=== PATIENT | female | born 1945 | race Caucasian/White ===

== ENCOUNTER 2024-03-19 09:52 | Emergency (ER) | payer OTHER, SELFPAY ==
[2024-03-19 09:54] VITALS: BP 158/83
[2024-03-19 10:00] VITALS: BP 175/92
[2024-03-19 10:26] VITALS: BMI 23.5
--- NOTE | 2024-03-19 10:32 | ED.GENMED ---
History of Present Illness
General
Chief Complaint: Blood Pressure Problem
Time Seen by Provider: 03/19/24 09:59
History of Present Illness
History of Present Illness:
78-year-old female presents to the emergency department with her for evaluation of abnormal blood pressure reading as of this morning. The reports that her blood pressure has been checked every day for the past several days that she
was started on Lasix for lower extremity edema 3 days ago she was requesting Lasix yesterday. Patient denies any chest pain or shortness of breath at this time. They did not weigh the patient today. She is compliant with her blood pressure
medicine
Past History
Past History
ED Past Medical History: Arrthythmia (AF), HTN, Hypothyroidism and Other (hypertrophic CM)
ED Past Surgical History: Appendectomy, Gynecological (Total Hysterectomy), Tonsilectomy and Other (Teratoma removed)
Patient has exhibited threatening behavior?: No
PSI?: No
Social History
Tobacco: Non-smoker
Alcohol: None
Personal:
Living: with family
Employment: Not employed
Family History
Family History: Hypertension
Review of Systems
Review of Systems
Allergies reviewed?: Yes
All Other Systems: ROS reviewed and negative except as documented in HPI and ROS
Phy Exam
Physical Exam
Physical Exam:
GEN: Well appearing, NAD, WDWN
Eyes: PERRLA, EOMs intact, no scleral icterus
HENT: NCAT, oral mucosa moist, no JVD, no cervical adenopathy.
Lungs: CTAB, no wheezes, rales, rhonchi, normal chest wall excursion
Cardiac: RRR, no M/R/G. Radial pulses 2+ bilat
Abdomen: S, NT, ND, NABS, no masses or hepatosplenomegaly
Neuro: AO x 3
MSK: No gross deformity or ecchymosis. 2+ pitting edema bilateral lower extremities, reportedly improved per
Skin: No rashes, petechiae. Normal color, no pallor or jaundice.
Psych: Calm, cooperative, proper hygiene
Course
Orders/Labs/Results
Orders:
Orders
03/19/24 10:15
CR Chest - 2 Views Urgent
Comment:
Reason For Exam: edema, weakness
03/19/24 10:38
Basic Metabolic Panel Urgent
Complete Blood Count/No Diff Urgent
NT-proBNP Urgent
03/19/24 11:16
Potassium Chloride [KCl] 20 meq PO NOW STA
Abnormal Lab Results
03/19/24
10:38
WBC 4.6 L 10^3/uL
(4.8-10.8)
RBC 4.08 L 10^6/uL
(4.20-5.40)
Hgb 11.1 L g/dL
(12.0-16.0)
Hct 33.9 L %
(37.0-47.0)
MCHC 32.7 L g/dL
(33.0-37.0)
RDW 14.7 H %
(11.5-14.5)
Potassium 3.3 L mmol/L
(3.5-5.1)
03/19/24 10:38
03/19/24 10:38
Vital Signs
Initial and Last Documented VS:
Initial Vital Signs
Temp Pulse Resp BP Pulse Ox
98.5 F 72 18 158/83 98
03/19/24 09:54 03/19/24 09:54 03/19/24 09:54 03/19/24 09:54 03/19/24 09:54
Last Documented Vital Signs
Temp Pulse Resp BP Pulse Ox
98.5 F 68 18 155/68 98
03/19/24 09:54 03/19/24 11:47 03/19/24 11:47 03/19/24 11:47 03/19/24 11:47
MDM/Problems Addressed
MDM/Problems Addressed:
Patient's workup reveals new cardiomegaly with trace bilateral pleural effusions. However she has no normal work of breathing and no complaints of shortness of breath thus I do not suspect any component of acute CHF. She is mildly hypokalemic on
the basis of recent diuresis suspect this will improve. Uncertain etiology to her acute hypotension however would not recommend any medication adjustments at this time rather will defer to outpatient cardiology follow-up
*Critical Care Note
Total Time (30-74mins, 75-104mins- exclusive of procedures): Not Applicable
ED Attending Note
-
Portions of this chart may have been created with voice recognition software.� Occasional wrong word or��sound alike� substitutions may have occurred due to the inherent limitations of voice recognition software.
Discharge Plan
Departure
Patient Disposition: Home (Routine Discharge)
Date of Disposition: 03/19/24
Time of Disposition: 11:17
Patient with high blood pressure during this ER visit?: No
Discharge Problem:
Elevated blood pressure reading, Acute hypokalemia
Instructions: BLOOD PRESSURE
Prescriptions:
No Action
levothyroxine 100 MCG tablet
100 mcg PO SUMOTUWETHFR@0500
multivitamin 1 EACH tablet
1 tab PO DAILY
ascorbic acid (vitamin C) [Vitamin C] 1,000 MG tablet
1,000 mg PO DAILY
doxazosin 1 MG tablet
1 mg PO DAILY@1999
diltiazem HCl 180 MG capsule,extended release 24hr
180 mg PO BID
Xarelto 20 MG tablet
20 mg PO QPM
cholecalciferol (vitamin D3) 2,000 UNIT tablet
1,000 unit PO DAILY
liothyronine 5 mcg Tablet
5 mcg PO DAILY@0500
amiodarone [Pacerone] 200 mg Tablet
200 mg PO DAILY Qty: 90 3RF
Referrals:
Aylin Meraz NP [Family Provider] -
Lindsey Barillas, [Active] -
Activity Restrictions/Additional Instructions:
Follow up with your test consultant office next week to discuss your blood pressure. Continue once daily blood pressure checks; in many cases, the blood pressure will return to normal within a few days
Your heart border appeared enlarged on your chest x ray. As a result, you may require a repeat echocardiogram. This can also be discussed with your test consultant
Your potassium levels are mildly low likely from your recent use of Lasix. We have given you a dose in the ER, but this likely will also return to normal as the lasix clears from your system
Return if you develop shortness of breath or chest pain
Interventions
Interventions:
*Risk Screen - Suicide Last Done: 03/19/24 09:54
*General Assessment Last Done: 03/19/24 09:54
*Neglect/Abuse Screening Last Done: 03/19/24 09:54
ED- Fall Risk Assessment Last Done: 03/19/24 10:26
*ED COVID-19 Vaccine History Last Done: 03/19/24 09:54
*Nursing Disposition Last Done: 03/19/24 11:47
ED- Cardiac Assessment Last Done: 03/19/24 10:26
ED- Neurological Assessment Last Done: 03/19/24 10:26
ED- Pulmonary Assessment Last Done: 03/19/24 10:26
Discharge Date and Time
Discharge Date/Time: 03/19/24 11:45
Print Language: MAURITIAN
[2024-03-19 11:03] LABS: Blood Urea Nitrogen 14 mg/dl (7-17); Calcium 8.7 mg/dl (8.4-10.2); Carbon Dioxide 29 mmol/L (22-30); Chloride 106 mmol/L (98-107); Estimated Creatinine Clearance 56 ml/min; Glucose 97 mg/dl (70-99); Potassium 3.3 mmol/L (3.5-5.1); Sodium 140 mmol/L (135-145); eGFR > 60.00
[2024-03-19 11:04] LABS: Hematocrit 33.9 % (37.0-47.0); Hemoglobin 11.1 g/dL (12.0-16.0); Mean Corp Hgb Conc. 32.7 g/dL (33.0-37.0); Mean Corpuscular Hgb 27.2 pg (27.0-31.0); Mean Corpuscular Volume 83.1 fL (81.0-99.0); Mean Platelet Volume 10.4 fL (7.4-10.4); Platelet Count 221 10^3/uL (130-400); Red Blood Cell Count 4.08 10^6/uL (4.20-5.40); Red Cell Dist. Width 14.7 % (11.5-14.5); White Blood Cell Count 4.6 10^3/uL (4.8-10.8)
[2024-03-19 11:05] VITALS: BP 162/69
[2024-03-19 11:09] LABS: NT-proBNP 730 pg/ml
[2024-03-19 11:25] VITALS: BP 155/68
[2024-03-19] MEDS: KCL 20 MEQ PO (11:25)
--- NOTE | 2024-03-19 11:45 | EDRN ---
Reviewed discharge instructions with patient's . Verbalized understanding. Taken to lobby in wheelchair.
[2024-03-19 11:47] VITALS: BP 155/68
== END 2024-03-19 11:45 | disposition home or self-care (01) ==
LOC: EMR 09:52
PROVIDERS: Physician Assistant; EMERGENCY PHYSICIAN Emergency Medicine; FAMILY PHYSICIAN Nurse Practitioner Family
DX: E87.6 Hypokalemia (principal); I10 Essential (primary) hypertension; R60.0 Localized edema
CPT/HCPCS: 99284; 71046; 80048; 83880; 85027

== ENCOUNTER → 2024-04-05 13:43 | Outpatient (REF) | payer OTHER, SELFPAY | LOC: HWRAD 13:43 | PROVIDERS: ATTENDING PHYSICIAN Nurse Practitioner Family | DX: N32.9 Bladder disorder, unspecified (principal) | CPT/HCPCS: 76857 ==

== ENCOUNTER → 2024-04-11 08:44 | Outpatient (REF) | payer OTHER, SELFPAY | LOC: RAD 08:44 | PROVIDERS: ATTENDING PHYSICIAN Nurse Practitioner Family | DX: R10.13 Epigastric pain (principal); K21.00 Gastro-esophageal reflux disease with esophagitis, without bleeding | CPT/HCPCS: 74246 ==

== ENCOUNTER → 2024-05-30 12:48 | Outpatient (REF) | payer OTHER, SELFPAY | LOC: HWRCS 12:48 | PROVIDERS: ATTENDING PHYSICIAN Internal Medicine Cardiovascular Disease; FAMILY PHYSICIAN Family Medicine | DX: I10 Essential (primary) hypertension (principal) | CPT/HCPCS: 93306 ==

== ENCOUNTER → 2024-07-21 08:10 | Outpatient (REF) | payer OTHER, SELFPAY | LOC: PAVMRI 08:10 | PROVIDERS: ATTENDING PHYSICIAN Surgery; FAMILY PHYSICIAN Nurse Practitioner Family | DX: N28.9 Disorder of kidney and ureter, unspecified (principal) | CPT/HCPCS: 74183; A9575 ==

== ENCOUNTER 2024-07-24 14:07 | Emergency (ER) | payer OTHER, SELFPAY ==
[2024-07-24] VITALS (12 sets, daily range): BP systolic 134–154; BP diastolic 68–88; PULSE 67–78; BMI 17.8
[2024-07-24 14:50] LABS: Hematocrit 34.8 % (37.0-47.0); Hemoglobin 10.8 g/dL (12.0-16.0); Mean Corpuscular Volume 83.7 fL (81.0-99.0); Mean Platelet Volume 10.4 fL (7.4-10.4); Platelet Count 197 10^3/uL (130-400); Red Blood Cell Count 4.16 10^6/uL (4.20-5.40); Red Cell Dist. Width 17.3 % (11.5-14.5)
--- NOTE | 2024-07-24 14:51 | ED.GENMED ---
History of Present Illness
General
Chief Complaint: Fainting/Passed Out
Source: patient and spouse
Exam Limitations: none
Time Seen by Provider: 07/24/24 14:26
Nursing documentation reviewed up to this point in time: agreed with
History of Present Illness
History of Present Illness:
The patient is an 78-year-old female woth a past medical history of atrial fibrillation who was brought in by her after she had an episode of passing out and collapsing at home just prior to arrival. Her reports that they were
preparing lunch in the kitchen and the patient said that she needed to sit down. He reports that he followed her to the dining room and she seemed to be standing in the dining room nearly unresponsive. He encouraged her to sit down in a chair,
which she did. Her reports that she seemed to be unresponsive for less than 5 minutes and passed out while sitting in the dining room chair. Fortunately she did not fall. He did not witness any seizure-like activity such as shaking of the
arms and legs, biting her tongue or urinating in her pants. he reports that she has had episodes of passing out in the past. The family checked her Apple Watch and her heart rate was recorded to be in the upper 50s during this episode of passing
out today.. The patient denies any recent chest pain or shortness of breath. Patient denies any pain anywhere and says she feels well. Her reports patient had been previously well.
Past History
Past History
ED Past Medical History: Arrthythmia (AF), HTN, Hypothyroidism and Other (hypertrophic CM)
ED Past Surgical History: Appendectomy, Gynecological (Total Hysterectomy), Tonsilectomy and Other (Teratoma removed)
Patient has exhibited threatening behavior?: No
PSI?: No
Social History
Tobacco: Non-smoker
Alcohol: None
Personal:
Living: with family
Employment: Not employed
Family History
Family History: Hypertension
Review of Systems
Review of Systems
Allergies reviewed?: Yes
Other source history: family
All Other Systems: ROS reviewed and negative except as documented in HPI and ROS
Constitutional: Reports no symptoms
EENT: Reports no symptoms
Respiratory: Reports no symptoms
Cardiac: Reports syncope
ABD/GI: Reports no symptoms
: Reports no symptoms
Musculoskeletal: Reports no symptoms
Skin: Reports no symptoms
Neurological: Reports no symptoms
Endocrine: Reports no symptoms
Hematologic/Lymphatic: Reports no symptoms
Psychiatric: Reports no symptoms
Phy Exam
Physical Exam
Physical Exam:
Physical Exam
General: no apparent distress, not acutely ill. Well and comfortable appearing
Neck: supple. no meningeal signs. normal psoterior pharynx
Heart: s1/s2 regular rate and rhythm, no murmur. equal radial pulses.
Lungs: no acute respiratory distress. clear bilaterally
Abdomen: normal bowel sounds. not tender. no CVAT
Neuro: alert and oriented. no focal neurological deficits
Skin: no rash
Psychiatric: well kept. interactive and cooperative
Extremities: no edema. no calf tenderness. negative homans. good distal pulses
Course
Orders/Labs/Results
Orders:
Orders
07/24/24 14:34
EKG [Electrocardiogram (*1)] Urgent
Reason for Study: Syncope
EKG- Treatment ONCE
07/24/24 14:39
Complete Blood Count/No Diff Urgent
Comprehensive Metabolic Panel Urgent
07/24/24 15:19
Orthostatic VS- Treatment ONCE
07/24/24 16:00
Troponin I Urgent
07/24/24 16:30
0.9% Sodium Chloride 1000 ml [Nss] 1,000 ml IV BOLUS
07/24/24 17:35
Troponin I Urgent
Abnormal Lab Results
07/24/24
14:39
RBC 4.16 L 10^6/uL
(4.20-5.40)
Hgb 10.8 L g/dL
(12.0-16.0)
Hct 34.8 L %
(37.0-47.0)
MCH 26.0 L pg
(27.0-31.0)
MCHC 31.0 L g/dL
(33.0-37.0)
RDW 17.3 H %
(11.5-14.5)
Carbon Dioxide 32 H mmol/L
(22-30)
Glucose 131 H mg/dl
(70-99)
AST 41 H U/L
(14-36)
Total Protein 6.1 L g/dl
(6.3-8.2)
Albumin 3.4 L g/dl
(3.5-5.0)
07/24/24 14:39
07/24/24 14:39
Vital Signs
Initial and Last Documented VS:
Initial Vital Signs
Pulse Pulse Ox
58 98
07/24/24 14:13 07/24/24 14:13
Last Documented Vital Signs
Temp Pulse Resp BP Pulse Ox
98.7 F 67 18 143/86 100
07/24/24 14:16 07/24/24 18:25 07/24/24 14:16 07/24/24 18:55 07/24/24 16:32
MDM/Problems Addressed
Differential Diagnosis Includes:
Acute cardiac arrhythmia such as rapid A-fib, orthostatic hypotension, dehydration
MDM/Problems Addressed:
Patient presents after an episode of acute syncope
Chronic conditions affecting care: Arrhythmia
Acute Exacerbation and/or Progression of Chronic Illness: Arrhythmia
*Pulse Oximetry
Patient hypoxic: no
*EKG
Interpreted by ED Provider?: Yes
Interpretation: abnormal
Comparison EKG: no changes
Rate: normal
Rhythm: sinus
[place]: normal axis
Interval: normal interval
QRS Pattern: right bundle branch block
Ischemia: non-specific ST changes
*Transit Survey Worker Interpretation
Rate: normal
Interpretation: normal
Rhythm: sinus
*Critical Care Note
Total Time (30-74mins, 75-104mins- exclusive of procedures): Not Applicable
Data Reviewed
Review of Other/Old Records Reveals: Testing (Cardiac echo done that shows normal EF from May 2024) and Discharge Summary (Discharge summary reviewed from July 2023 when patient was admitted for syncope and collapse related to rapid A-fib)
Source: patient and spouse
Update Note
Update Note:
Patient resting comfortably for hours without any chest pain or shortness of breath. I suspect patient had an orthostatic event. Patient given fluids and encouraged to drink fluids and good protein meal. Patient told to return with any dizziness,
lightheadedness, chest pain or shortness of breath
ED Attending Note
-
Portions of this chart may have been created with voice recognition software.� Occasional wrong word or��sound alike� substitutions may have occurred due to the inherent limitations of voice recognition software.
Discharge Plan
Departure
Patient Disposition: Home (Routine Discharge)
Date of Disposition: 07/24/24
Time of Disposition: 18:14
Patient with high blood pressure during this ER visit?: Yes
Condition: Good
Covid-19: Not Applicable
Discharge Problem:
Syncope and collapse, Orthostatic dizziness
Instructions: Orthostatic hypotension, Syncope (Fainting) (DC)
Prescriptions:
No Action
levothyroxine 100 MCG tablet
100 mcg PO SUMOTUWETHFR@0500
multivitamin 1 EACH tablet
1 tab PO DAILY
ascorbic acid (vitamin C) [Vitamin C] 1,000 MG tablet
1,000 mg PO DAILY
doxazosin 1 MG tablet
1 mg PO DAILY@2000
diltiazem HCl 180 MG capsule,extended release 24hr
180 mg PO BID
Xarelto 20 MG tablet
20 mg PO QPM
cholecalciferol (vitamin D3) 2,000 UNIT tablet
1,000 unit PO DAILY
liothyronine 5 mcg Tablet
5 mcg PO DAILY@0500
amiodarone [Pacerone] 200 mg Tablet
200 mg PO DAILY Qty: 90 3RF
Referrals:
Aylin Meraz NP [Family Provider] -
Activity Restrictions/Additional Instructions:
Please drink lots of fluids to keep yourself well-hydrated. If you feel lightheaded, please sit down immediately and elevate your legs.
Interventions
Interventions:
*Risk Screen - Suicide Last Done: 07/24/24 14:16
*General Assessment Last Done: 07/24/24 14:16
*Neglect/Abuse Screening Last Done: 07/24/24 14:16
ED- Fall Risk Assessment Last Done: 07/24/24 17:19
*ED COVID-19 Vaccine History Last Done: 07/24/24 19:17
*Nursing Disposition Last Done: 07/24/24 19:17
ED- Cardiac Assessment Last Done: 07/24/24 17:19
ED- Neurological Assessment Last Done: 07/24/24 17:19
Discharge Date and Time
Discharge Date/Time: 07/24/24 18:50
Print Language: BENGALI
[2024-07-24 15:06] LABS: ALT (SGPT) 25 U/L (0-35); AST (SGOT) 41 U/L (14-36); Albumin 3.4 g/dl (3.5-5.0); Alkaline Phosphatase 111 U/L (38-126); Blood Urea Nitrogen 17 mg/dl (7-17); Calcium 8.7 mg/dl (8.4-10.2); Carbon Dioxide 32 mmol/L (22-30); Chloride 104 mmol/L (98-107); Glucose 131 mg/dl (70-99); Potassium 3.8 mmol/L (3.5-5.1); Sodium 140 mmol/L (135-145); Total Bilirubin 0.4 mg/dl (0.2-1.3); Total Protein 6.1 g/dl (6.3-8.2); eGFR > 60.00
[2024-07-24 16:43] LABS: Troponin I 0.013 ng/ml
[2024-07-24] MEDS: NSS 1000 IV (16:48)
[2024-07-24 18:13] LABS: Troponin I < 0.012 ng/ml
== END 2024-07-24 18:50 | disposition home or self-care (01) ==
LOC: EMR 14:07
PROVIDERS: EMERGENCY PHYSICIAN Emergency Medicine; FAMILY PHYSICIAN Nurse Practitioner Family
DX: R55 Syncope and collapse (principal); R42 Dizziness and giddiness; I48.91 Unspecified atrial fibrillation; I10 Essential (primary) hypertension; E03.9 Hypothyroidism, unspecified; I42.2 Other hypertrophic cardiomyopathy; Z82.49 Family history of ischemic heart disease and other diseases of the circulatory system; Z90.49 Acquired absence of other specified parts of digestive tract; Z90.710 Acquired absence of both cervix and uterus
CPT/HCPCS: 99283; 96360; 80053; 84484; 85027; 93005

== ENCOUNTER → 2024-08-27 11:10 | Outpatient (REF) | payer OTHER, SELFPAY ==
[2024-08-27 11:52] LABS: % Basophils 0.6 % (0-2); % Eosinophils 0.6 % (0-6); % Immature Granulocytes 0.6 % (0-0.5); % Lymphocytes 5.4 % (20.5-51.1); % Monocytes 6.3 % (1.7-9.3); % Neutrophils 86.5 % (42.2-75.2); Absolute Basophils 0.1 10^3/uL (0-0.2); Absolute Eosinophils 0.1 10^3/uL (0-0.7); Absolute Immature Granulocytes 0.1 10^3/uL (0-0.05); Absolute Lymphocytes 0.6 10^3/uL (1.2-3.4); Absolute Monocytes 0.7 10^3/uL (0.1-0.6); Absolute Neutrophils 9.4 10^3/uL (1.4-6.5); Hematocrit 38.5 % (37.0-47.0); Mean Corp Hgb Conc. 31.2 g/dL (33.0-37.0); Mean Corpuscular Hgb 26.7 pg (27.0-31.0); Mean Corpuscular Volume 85.7 fL (81.0-99.0); Mean Platelet Volume 11.8 fL (7.4-10.4); Nucleated Red Blood Cells % 0 %; Platelet Count 231 10^3/uL (130-400); Red Blood Cell Count 4.49 10^6/uL (4.20-5.40); Red Cell Dist. Width 17.2 % (11.5-14.5); White Blood Cell Count 10.8 10^3/uL (4.8-10.8)
[2024-08-27 12:01] LABS: Blood Urea Nitrogen 26 mg/dl (7-17); Calcium 8.6 mg/dl (8.4-10.2); Carbon Dioxide 31 mmol/L (22-30); Chloride 104 mmol/L (98-107); Glucose 104 mg/dl (70-99); Potassium 4.1 mmol/L (3.5-5.1); Sodium 141 mmol/L (135-145); eGFR > 60.00
[2024-08-27 12:09] LABS: Urine Albumin 1+ (Neg - Trace); Urine Bilirubin Negative (Negative); Urine Character Very Cloudy (Clear); Urine Color Amber; Urine Glucose Negative (Negative); Urine Ketone 1+ (Negative); Urine Leukocyte 2+ (Negative); Urine Nitrite Positive (Negative); Urine Occult Blood 4+ (Negative); Urine Urobilinogen Negative (Neg - 1+)
[2024-08-27 12:23] LABS: Urine Squamous Cell 16-20 /LPF (Few)
[2024-08-27 12:24] LABS: Urine Bacteria Moderate (Negative); Urine Red Blood Cell 16-20 /HPF (0-2); Urine White Cell 80-90 /HPF (0-5)
== END ==
LOC: OLABP 11:10
PROVIDERS: ATTENDING PHYSICIAN Family Medicine
DX: F03.90 Unspecified dementia, unspecified severity, without behavioral disturbance, psychotic disturbance, mood disturbance, and anxiety (principal); I48.0 Paroxysmal atrial fibrillation; I10 Essential (primary) hypertension
CPT/HCPCS: 36415; 80048; 81003; 81015; 85025; 87077; 87086; 87186

== ENCOUNTER → 2024-08-29 10:34 | Outpatient (REF) | payer OTHER, SELFPAY ==
[2024-08-29 11:06] LABS: Hematocrit 42.9 % (37.0-47.0); Hemoglobin 13.1 g/dL (12.0-16.0); Mean Corp Hgb Conc. 30.5 g/dL (33.0-37.0); Mean Corpuscular Hgb 26.4 pg (27.0-31.0); Mean Corpuscular Volume 86.3 fL (81.0-99.0); Mean Platelet Volume 11.3 fL (7.4-10.4); Platelet Count 277 10^3/uL (130-400); Red Blood Cell Count 4.97 10^6/uL (4.20-5.40); Red Cell Dist. Width 17.5 % (11.5-14.5); White Blood Cell Count 9.1 10^3/uL (4.8-10.8)
[2024-08-29 11:16] LABS: ALT (SGPT) 47 U/L (0-35); AST (SGOT) 59 U/L (14-36); Albumin 3.3 g/dl (3.5-5.0); Alkaline Phosphatase 156 U/L (38-126); Blood Urea Nitrogen 32 mg/dl (7-17); Calcium 8.5 mg/dl (8.4-10.2); Carbon Dioxide 34 mmol/L (22-30); Chloride 101 mmol/L (98-107); Glucose 95 mg/dl (70-99); Potassium 3.9 mmol/L (3.5-5.1); Sodium 141 mmol/L (135-145); Total Bilirubin 0.5 mg/dl (0.2-1.3); eGFR > 60.00
== END ==
LOC: OLABP 10:34
PROVIDERS: ATTENDING PHYSICIAN Family Medicine
DX: F03.90 Unspecified dementia, unspecified severity, without behavioral disturbance, psychotic disturbance, mood disturbance, and anxiety (principal); I48.0 Paroxysmal atrial fibrillation; I10 Essential (primary) hypertension; S12.190A Other displaced fracture of second cervical vertebra, initial encounter for closed fracture
CPT/HCPCS: 36415; 80053; 85027

== ENCOUNTER → 2024-10-03 16:02 | Outpatient (REF) | payer OTHER, SELFPAY ==
[2024-10-03 17:50] LABS: Urine Albumin 3+ (Neg - Trace); Urine Bilirubin 1+ (Negative); Urine Character Cloudy (Clear); Urine Color Brown; Urine Glucose Negative (Negative); Urine Ketone 1+ (Negative); Urine Leukocyte 3+ (Negative); Urine Nitrite Positive (Negative); Urine Occult Blood 4+ (Negative); Urine Specific Gravity 1.015 (<1.030); Urine Urobilinogen 1+ (Neg - 1+)
[2024-10-03 17:59] LABS: Urine Red Blood Cell >100 /HPF (0-2); Urine Squamous Cell 0-2 /LPF (Few)
[2024-10-03 18:00] LABS: Urine Bacteria Many (Negative); Urine White Cell 21-25 /HPF (0-5)
== END ==
LOC: OLABP 16:02
PROVIDERS: ATTENDING PHYSICIAN Family Medicine
DX: S12.190D Other displaced fracture of second cervical vertebra, subsequent encounter for fracture with routine healing (principal); F03.C0 Unspecified dementia, severe, without behavioral disturbance, psychotic disturbance, mood disturbance, and anxiety; I48.0 Paroxysmal atrial fibrillation; I10 Essential (primary) hypertension
CPT/HCPCS: 81003; 81015; 87086

== ENCOUNTER → 2024-10-10 12:16 | Outpatient (REF) | payer OTHER, SELFPAY | LOC: HWRAD 12:16 | PROVIDERS: ATTENDING PHYSICIAN Nurse Practitioner Family | DX: J18.9 Pneumonia, unspecified organism (principal) | CPT/HCPCS: 71046 ==

== ENCOUNTER 2024-10-11 15:41 | Inpatient (IN) | payer OTHER, SELFPAY ==
[2024-10-11 12:38] VITALS: BMI 20.3
[2024-10-11 12:39] VITALS: BP 93/51
[2024-10-11 13:10] LABS: % Basophils 0.1 % (0-2); % Immature Granulocytes 1.5 % (0-0.5); % Lymphocytes 4.4 % (20.5-51.1); % Monocytes 5.5 % (1.7-9.3); % Neutrophils 88.5 % (42.2-75.2); Absolute Immature Granulocytes 0.1 10^3/uL (0-0.05); Absolute Lymphocytes 0.4 10^3/uL (1.2-3.4); Absolute Monocytes 0.5 10^3/uL (0.1-0.6); Absolute Neutrophils 7.8 10^3/uL (1.4-6.5); Hematocrit 41.9 % (37.0-47.0); Hemoglobin 13.6 g/dL (12.0-16.0); Mean Corp Hgb Conc. 32.5 g/dL (33.0-37.0); Mean Corpuscular Hgb 27.4 pg (27.0-31.0); Mean Corpuscular Volume 84.5 fL (81.0-99.0); Mean Platelet Volume 10.2 fL (7.4-10.4); Nucleated Red Blood Cells % 0 %; Platelet Count 205 10^3/uL (130-400); Red Blood Cell Count 4.96 10^6/uL (4.20-5.40); Red Cell Dist. Width 19.1 % (11.5-14.5); White Blood Cell Count 8.8 10^3/uL (4.8-10.8)
[2024-10-11 13:33] LABS: ALT (SGPT) 96 U/L (0-35); AST (SGOT) 164 U/L (14-36); Albumin 2.9 g/dl (3.5-5.0); Alkaline Phosphatase 123 U/L (38-126); Blood Urea Nitrogen 58 mg/dl (7-17); Calcium 8.3 mg/dl (8.4-10.2); Carbon Dioxide 29 mmol/L (22-30); Chloride 96 mmol/L (98-107); Estimated Creatinine Clearance 10 ml/min; Glucose 159 mg/dl (70-99); Potassium 3.2 mmol/L (3.5-5.1); Sodium 133 mmol/L (135-145); Total Bilirubin 0.9 mg/dl (0.2-1.3); Total Protein 5.5 g/dl (6.3-8.2)
[2024-10-11 13:43] LABS: COVID-19 Antigen Positive (Negative)
[2024-10-11 13:50] VITALS: BP 106/51
[2024-10-11 13:59] LABS: Urine Albumin 2+ (Neg - Trace); Urine Bilirubin Negative (Negative); Urine Character Clear (Clear); Urine Color Yellow; Urine Glucose Negative (Negative); Urine Ketone 1+ (Negative); Urine Leukocyte 3+ (Negative); Urine Nitrite Negative (Negative); Urine Occult Blood 4+ (Negative); Urine Specific Gravity 1.015 (<1.030); Urine Urobilinogen Negative (Neg - 1+)
[2024-10-11 14:00] VITALS: BP 116/66
--- NOTE | 2024-10-11 14:07 | ED.GENMED ---
History of Present Illness
General
Chief Complaint: Failure to Thrive
Source: patient
Exam Limitations: none
Time Seen by Provider: 10/11/24 13:37
History of Present Illness
History of Present Illness:
78-year-old female presents from home with family who states the patient has declined over the past several weeks. She fell in August and suffered a C2 fracture. She was in [facility] for several days and [facility].
She was noticed to have decreased intake and lack of enjoyment in meals at the rehab center. She was discharged from rehab 1 week ago and since then they have noticed more of a decline. She has a history of cognitive impairment. They noticed she
is significantly off from her baseline and significantly weak. She also has been coughing for about a week. Her was coughing as well. Patient denies any pain but is a poor historian.
Past History
Past History
ED Past Medical History: Arrthythmia (AF), HTN, Hypothyroidism and Other (hypertrophic CM)
ED Past Surgical History: Appendectomy, Gynecological (Total Hysterectomy), Tonsilectomy and Other (Teratoma removed)
Patient has exhibited threatening behavior?: No
PSI?: No
Social History
Tobacco: Non-smoker
Alcohol: None
Personal:
Living: with family
Employment: Not employed
Family History
Family History: Hypertension
Phy Exam
Physical Exam
Physical Exam:
General: Cachectic appearing female no acute respiratory distress
HEENT: Normocephalic mucosa moist neck in cervical collar
Heart: Regular rate and rhythm holosystolic murmur noted
Lungs: Clear no wheeze
Abdomen is soft nontender nondistended no guarding or rebound
Extremities: No cyanosis or edema
Skin: Warm no rash
Course
Orders/Labs/Results
Orders:
Orders
10/11/24 12:33
Electrocardiogram (*1) Urgent
Reason for Study: Fatigue / Weakness
10/11/24 12:35
EKG- Treatment ONCE
10/11/24 12:55
Complete Blood Count/With Diff Urgent
Comprehensive Metabolic Panel Urgent
Magnesium Urgent
Comment: ADD ON
Urinalysis Reflex To Culture Urgent
Date Specimen was Collected: 10/11/24
Time Specimen was Collected: 12:43
Comment: Graves Catheter
Urine Microscopic Reflex Cult Urgent
Urine Culture Urgent
LEE Source: U
Specimen Description:
Date Specimen was Collected: 10/11/24
Time Specimen was Collected: 12:43
10/11/24 13:09
COVID-19 Antigen Urgent
Source: Nasal Swab
Influenza A+B Rapid Molecular Urgent
LEE Source: Nasal Swab
Specimen Description:
10/11/24 14:05
Add On- LAB Urgent
Tests Added?: magnesium
0.9% Sodium Chloride 1000 ml [Nss] 1,000 ml IV BOLUS
10/11/24 14:12
CR Chest Portable - 1 View Urgent
Comment:
Reason For Exam: cough
Reason Study Needs to be Portable: Patient Unstable
10/11/24 14:28
Potassium Chloride [KCl] 40 meq 0.9% Sodium Chloride 250 ml [Nss] 250 ml IV NOW
Abnormal Lab Results
10/11/24 10/11/24
12:55 13:09
MCHC 32.5 L g/dL
(33.0-37.0)
RDW 19.1 H %
(11.5-14.5)
Abs Immat Gran (auto) 0.1 H 10^3/uL
(0-0.05)
Absolute Neuts (auto) 7.8 H 10^3/uL
(1.4-6.5)
Absolute Lymphs (auto) 0.4 L 10^3/uL
(1.2-3.4)
Immature Gran % 1.5 H %
(0-0.5)
Neutrophils % 88.5 H %
(42.2-75.2)
Lymphocytes % 4.4 L %
(20.5-51.1)
Sodium 133 L mmol/L
(135-145)
Potassium 3.2 L mmol/L
(3.5-5.1)
Chloride 96 L mmol/L
(98-107)
BUN 58 H mg/dl
(7-17)
Creatinine 3.2 H mg/dL
(0.6-1.0)
Glucose 159 H mg/dl
(70-99)
Calcium 8.3 L mg/dl
(8.4-10.2)
AST 164 H U/L
(14-36)
ALT 96 H U/L
(0-35)
Total Protein 5.5 L g/dl
(6.3-8.2)
Albumin 2.9 L g/dl
(3.5-5.0)
Urine Ketones 1+ A
(Negative)
Ur Occult Blood Reflex 4+ A
(Negative)
Leukocyte Esterase Rfl 3+ A
(Negative)
Urine RBC >100 A /HPF
(0-2)
Urine WBC (Reflex) 40-50 A /HPF
(0-5)
Urine Bacteria (Reflex) Few A
(Negative)
Urine Albumin (Reflex) 2+ A
(Neg - Trace)
SARS-CoV-2 Antigen Positive A
(Negative)
10/11/24 12:55
10/11/24 12:55
Vital Signs
Initial and Last Documented VS:
Initial Vital Signs
Temp Pulse Resp BP Pulse Ox
98.3 F 72 16 93/51 94
10/11/24 12:39 10/11/24 12:39 10/11/24 12:39 10/11/24 12:39 10/11/24 12:39
Last Documented Vital Signs
Temp Pulse Resp BP Pulse Ox
98.3 F 63 16 116/66 93
10/11/24 12:39 10/11/24 14:30 10/11/24 14:30 10/11/24 14:00 10/11/24 14:30
MDM/Problems Addressed
Differential Diagnosis Includes:
weakness lack of intake and change from cognitive baseline. Differential could include electrolyte abnormality versus dehydration versus UTI. She also has been coughing. Will test for COVID and flu. Patient had an x-ray of her chest done at the
wellness center yesterday which I reviewed and demonstrates a small left pleural effusion and obscurity of the left hemidiaphragm left lower airspace disease may be present.
Will repeat portable chest x-ray today. COVID test was positive influenza test was negative.
Notable lab findings include potassium of 3.2 and creatinine was 3.2 as well. I suspect acute kidney injury likely prerenal.
*Critical Care Note
Total Time (30-74mins, 75-104mins- exclusive of procedures): Not Applicable
Update Note
Update Note:
Portable chest x-ray shows no obvious acute finding. Patient was treated for acute kidney injury and hypokalemia with IV potassium and normal saline. Will admit to hospitalist
ED Attending Note
-
Portions of this chart may have been created with voice recognition software.� Occasional wrong word or��sound alike� substitutions may have occurred due to the inherent limitations of voice recognition software.
Discharge Plan
Departure
Patient Disposition: Admit
Date of Disposition: 10/11/24
Time of Disposition: 15:03
Presentation/result/management discussed w/ accepting MD/DO: Hospitalist
Discharge Problem:
Acute dehydration, JOCELIN (acute kidney injury)
Prescriptions:
No Action
levothyroxine 100 MCG tablet
100 mcg PO SUMOTUWETHFR@0500
diltiazem HCl 180 MG capsule,extended release 24hr
180 mg PO DAILY
Xarelto 20 MG tablet
20 mg PO QPM
liothyronine 5 mcg Tablet
5 mcg PO DAILY@0500
amiodarone [Pacerone] 200 mg Tablet
200 mg PO DAILY Qty: 90 3RF
ciprofloxacin HCl [Cipro] 500 mg Tablet
500 mg PO BID
carbidopa-levodopa [Sinemet] 25-100 mg Tablet
1 tab PO DIRECTED
Rx Instructions:
starting 10/06/24- 0.5 tab bid for 3 days then 1 tab bid (10/09-10/12)for 3 days then 1 tab tid thereafter
polyethylene glycol 3350 [Miralax] 17 gram Powder In Packet
8.5 g PO DAILY
cyanocobalamin (vitamin B-12) 1,000 mcg Tablet, Sublingual
1,000 mcg SUBLINGUAL DAILY
coQ10 (ubiquinol) 100 mg Capsule
100 mg PO DAILY
Vitamin K2 Plus K1
1 cap PO DAILY
Referrals:
UNKNOWN,NO INTERVIEW [Family Provider] -
Interventions
Interventions:
*Risk Screen - Suicide Last Done: 10/11/24 12:38
*General Assessment Last Done: 10/11/24 12:43
*Neglect/Abuse Screening Last Done: 10/11/24 12:38
ED- Fall Risk Assessment Last Done: 10/11/24 12:46
*ED COVID-19 Vaccine History Last Done: 10/11/24 12:38
Discharge Date and Time
Print Language: TUVALUAN
[2024-10-11] MEDS: NSS 1000 IV ×2 (14:29→18:06)
[2024-10-11 14:47] LABS: Urine Amorphous Seen; Urine Squamous Cell >30 /LPF (Few); Urine Urothelial Cell >30 /LPF (FEW)
[2024-10-11 14:48] LABS: Urine Calcium Oxalate Crystals Present; Urine Red Blood Cell >100 /HPF (0-2)
[2024-10-11 14:54] LABS: Urine Bacteria Few (Negative); Urine White Cell 40-50 /HPF (0-5)
[2024-10-11 15:04] LABS: Magnesium 2.8 mg/dl (1.6-2.3)
--- NOTE | 2024-10-11 15:38 | HPS.HSE ---
Family Physician
-
Family Physician: NO INTERVIEW UNKNOWN
Chief Complaint
-
failure to thrive
History of Present Illness
78-year-old female past medical history of cognitive impairment, urinary retention with Graves catheter, HFpEF, hypertrophic obstructive cardiomyopathy, PFO, bicuspid aortic valve with subaortic membrane, paroxysmal atrial fibrillation,
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 She fell in August and had a C2 fracture. She was in [facility] for several days and
discharged to [facility] rehab. She is wearing a neck collar which is supposed to be reassessed by neurosurgeon in October to see if he can be removed. She also had a Graves catheter placed due to urinary retention.
She was noted to have decreased oral intake and lack of enjoyment in meals at the rehab center. Discharged from rehab 1 week ago and was noticed to have more of a decline since this time. She is not eating at all. She has been coughing for a
week. No shortness of breath. No chest pain. No nausea vomiting or diarrhea. She was diagnosed with UTI twice while in rehab due to hematuria and urinary discomfort and received a course of antibiotics and recently was again started on
ciprofloxacin approximately 6 days ago. She has 1 more day of antibiotic. No more blood in the urine at this time. Graves catheter was exchanged a few weeks ago.
She is not having any bowel movements which she is not eating.
She has been depressed but no suicidal thoughts. She has been very scared about dying.
She was noted to have a shuffling gait and was started on carbidopa levodopa 3 days ago.
Medical History
Past Medical History
Past Medical History: Reports Other (cognitive impairment, HFpEF, hypertrophic obstructive cardiomyopathy, PFO, bicuspid aortic valve with subaortic membrane, paroxysmal atrial fibrillation, hypothyroidism, hypertension, retroperitoneal teratoma
status post WILLIAM/BSO/appendectomy 2012)
Past Surgical History: Reports Other (Appendectomy, Gynecological (Total Hysterectomy), Tonsilectomy and Other (Teratoma removed))
Social History
Tobacco: Non-smoker
Alcohol: None
Drug: None
Family History
Family History: Not pertinent
Allergies / Home Medications
Allergies reflects when Allergies were last updated in [email or web address].
Home Medications with original date entered in [email or web address]
Allergy/Medication List:
Allergies
Allergy/AdvReac Type Severity Reaction Status Date / Time
spironolactone Allergy Intermediate Pharmacy Verified 10/11/24 12:42
to Review
amlodipine Allergy Unknown Unknown Verified 10/11/24 12:42
benazepril Allergy Unknown Unknown Verified 10/11/24 12:42
chlorthalidone Allergy Unknown Unknown Verified 10/11/24 12:42
indapamide Allergy Unknown Unknown Verified 10/11/24 12:42
losartan Allergy Unknown Unknown Verified 10/11/24 12:42
methyldopa Allergy Unknown Unknown Verified 10/11/24 12:42
metoprolol Allergy Unknown Unknown Verified 10/11/24 12:42
nebivolol Allergy Unknown Unknown Verified 10/11/24 12:42
codeine [Codeine] Allergy upset Verified 10/11/24 12:42
stomach
latex Allergy itchy hands Verified 10/11/24 12:42
Home Medications
levothyroxine 100 mcg tablet 100 mcg PO SUMOTUWETHFR@0500 Thyroid 11/29/19
diltiazem HCl 180 mg capsule,extended release 24 hr 180 mg PO DAILY Heart Disease/Condition 09/18/21
rivaroxaban 20 mg tablet (Xarelto) 20 mg PO QPM Blood Clot Prevention/Tx 09/18/21
liothyronine 5 mcg tablet 5 mcg PO DAILY@0500 Thyroid 08/14/23
amiodarone 200 mg tablet (Pacerone) 200 mg PO DAILY #90 tabs 08/15/23
Vitamin K2 Plus K1 1 cap PO DAILY 10/11/24
carbidopa 25 mg-levodopa 100 mg tablet (Sinemet) 1 tab PO DIRECTED 10/11/24
ciprofloxacin HCl 500 mg tablet (Cipro) 500 mg PO BID 10/11/24
coQ10 (ubiquinol) 100 mg capsule 100 mg PO DAILY 10/11/24
cyanocobalamin (vitamin B-12) 1,000 mcg sublingual tablet 1,000 mcg sublingual DAILY 10/11/24
polyethylene glycol 3350 17 gram oral powder packet (Miralax) 8.5 g PO DAILY 10/11/24
Review of Systems
-
History Source: Patient
A 12 point ROS was completed and negative except as noted: Yes
Constitutional: Reports No Symptoms
EENT: Reports No Symptoms
Respiratory: Reports No Symptoms
Cardiac: Reports No Symptoms
Abdomen/GI: Reports No Symptoms
: Reports No Symptoms
Musculoskeletal: Reports No Symptoms
Skin: Reports No Symptoms
Neurological: Reports No Symptoms
Endocrine: Reports No Symptoms
Hematologic/Lymphatic: Reports No Symptoms
Psych: Reports No Symptoms
Physical Exam
Vital Signs
Vital Signs
Temp Pulse Resp BP Pulse Ox
98.3 F 63 16 116/66 93
10/11/24 12:39 10/11/24 14:30 10/11/24 14:30 10/11/24 14:00 10/11/24 14:30
Physical Exam
General: Well Developed, Well Nourished and No Apparent Distress
HEENT: NormoCephalic, Moist mucous membranes and Atraumatic
Respiratory: Clear
Cardiac: S1/S2 and Regular Rhythm; No Murmur or Rub
GI: Soft, Non Tender, Non Distended and Normal Bowel Sounds; No Organomegaly
Rectal: Deferred by Provider
Musculoskeletal: No Clubbing, No Cyanosis and No Edema
Skin: No Rash
Neuro: Nonfocal/grossly intact
Laboratory Results
-
10/11/24 12:55
10/11/24 12:55
Laboratory Results
Total Bilirubin 0.9 mg/dl (0.2-1.3) 10/11/24 12:55
AST 164 U/L (14-36) H 10/11/24 12:55
ALT 96 U/L (0-35) H 10/11/24 12:55
Alkaline Phosphatase 123 U/L (38-126) 10/11/24 12:55
Data Reviewed
-
Lab Data: Labs Reviewed by me
Old Records: Reviewed
Impression/Plan
-
IMPRESSION:
PLAN:
# Acute on chronic functional decline secondary to COVID infection as well as chronic decline secondary to deconditioning/depression
-COVID-positive here
-Initial blood pressure 96/51
-O2 sat 95% here
-Chest x-ray shows small left pleural effusion with adjacent left basilar opacity which is unchanged from prior
-No treatment necessary for COVID
-Motion Picture Cameraman consult for lack of oral intake
-Family inquiring about feeding tube which is not indicated
-PT/OT
# Acute kidney injury secondary to hypovolemia
-Creatinine of 3.2
-IV fluids
# Hypokalemia
-Potassium repletion
# Worsening transaminitis likely secondary to COVID
-Continue to monitor
# Recent hematuria secondary to catheter associated UTI
-Urinalysis shows red blood cells but no signs of infection
-Can finish ciprofloxacin tomorrow
-Patient has urology follow-up scheduled for next week
Urinary retention with Graves catheter
-Graves was exchanged a few weeks ago
# Anxiety/depression
-Outpatient follow-up with psychiatry
Recent C2 fracture
-Wearing neck collar
Recently diagnosed Parkinsons
-Started on carbidopa levodopa 3 days ago due to shuffling gait
Chronic HFpEF
Hypertrophic obstructive cardiomyopathy
PFO
Bicuspid aortic valve without subaortic membrane
Paroxysmal atrial fibrillation
-Continue amiodarone
-Continue diltiazem
-Continue Xarelto
Hypothyroidism
-Continue levothyroxine, liothyronine
Essential hypertension
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
DNR/DNI
DVT prophylaxis�heparin
Regular diet
[2024-10-11] MEDS: KCL 270 MEQ IV (16:00)
[2024-10-11 16:05] VITALS: BP 130/70
[2024-10-11 17:45] VITALS: BP 135/74
[2024-10-11 18:34] VITALS: BMI 20.1
[2024-10-11 18:46] VITALS: BMI 20.1
[2024-10-11] MEDS: CIPRO 500 MG PO (18:54)
[2024-10-11] MEDS: XARELTO 20 MG PO (18:54)
[2024-10-11] MEDS: SINEMET 25-100 1 TABLET PO (20:04)
--- NOTE | 2024-10-11 20:08 | PTCARENOTE ---
Reached out to concrete bucket unloader provider for buchanan order and an update on buchanan history.
Pt's family is stating this buchanan is from [facility]. They do not know which facility it was placed at, they guess it was placed near the end of August.
--- NOTE | 2024-10-11 20:14 | PTCARENOTE ---
Modified original regular diet order from provider to reflect patients vegan diet preference
[2024-10-11 23:20] VITALS: BP 146/81
[2024-10-11] MEDS: LIDOCAINE 4% PATCH 1 PATCH TOPICAL (23:54)
[2024-10-12 00:10] VITALS: BP 146/81
[2024-10-12] MEDS: NSS 1000 IV ×2 (03:53→13:17)
[2024-10-12] MEDS: CYTOMEL 5 MICROGRAM PO (04:44)
[2024-10-12] MEDS: SYNTHROID 100 MCG PO (05:20)
[2024-10-12 07:16] VITALS: BP 158/87
[2024-10-12 08:01] LABS: % Basophils 0.1 % (0-2); % Eosinophils 0.1 % (0-6); % Immature Granulocytes 1.2 % (0-0.5); % Lymphocytes 5.6 % (20.5-51.1); % Monocytes 5.9 % (1.7-9.3); % Neutrophils 87.1 % (42.2-75.2); Absolute Immature Granulocytes 0.1 10^3/uL (0-0.05); Absolute Lymphocytes 0.4 10^3/uL (1.2-3.4); Absolute Monocytes 0.4 10^3/uL (0.1-0.6); Absolute Neutrophils 6.5 10^3/uL (1.4-6.5); Hematocrit 41.9 % (37.0-47.0); Hemoglobin 13.7 g/dL (12.0-16.0); Mean Corp Hgb Conc. 32.7 g/dL (33.0-37.0); Mean Corpuscular Hgb 27.4 pg (27.0-31.0); Mean Corpuscular Volume 83.8 fL (81.0-99.0); Mean Platelet Volume 10.5 fL (7.4-10.4); Nucleated Red Blood Cells % 0 %; Platelet Count 216 10^3/uL (130-400); Red Cell Dist. Width 19.4 % (11.5-14.5); White Blood Cell Count 7.5 10^3/uL (4.8-10.8)
[2024-10-12] MEDS: MIRALAX 8.5 GRAMS PO (08:41)
[2024-10-12] MEDS: LIDOCAINE 4% PATCH 1 PATCH TOPICAL (08:41)
[2024-10-12] MEDS: VITAMIN B-12 1000 MCG PO (08:41)
[2024-10-12] MEDS: CARDIZEM CD 180 MG PO (08:41)
--- NOTE | 2024-10-12 08:41 | VNURNOTE ---
Chart reviewed. Patient is current with [facility] nursing, CNC LATHE PROGRAMMER, EXPORT FREIGHT MANAGER, PT, OT, SN, STILL PHOTOGRAPHER. Will continue to follow hospital course and DC plans.
[2024-10-12] MEDS: PACERONE 200 MG PO (08:42)
[2024-10-12] MEDS: SINEMET 25-100 1 TABLET PO ×2 (08:45→20:29)
[2024-10-12 10:03] LABS: ALT (SGPT) 89 U/L (0-35); AST (SGOT) 129 U/L (14-36); Albumin 3.1 g/dl (3.5-5.0); Alkaline Phosphatase 134 U/L (38-126); Blood Urea Nitrogen 50 mg/dl (7-17); Calcium 8.2 mg/dl (8.4-10.2); Carbon Dioxide 23 mmol/L (22-30); Chloride 102 mmol/L (98-107); Estimated Creatinine Clearance 10 ml/min; Glucose 74 mg/dl (70-99); Potassium 3.2 mmol/L (3.5-5.1); Sodium 135 mmol/L (135-145); Total Protein 5.6 g/dl (6.3-8.2)
--- NOTE | 2024-10-12 12:26 | W.PN.HOSP.TC ---
Today's Communication/Plan
-
Replete potassium
Monitor mentation
Rehab evaluation
Monitor oral intake
Trend creatinine
Assessment / Plan
Assessment / Plan
General: Well Developed, Well Nourished and No Apparent Distress
HEENT: NormoCephalic, Moist mucous membranes and Atraumatic, cervical collar in place
Respiratory: Clear
Cardiac: S1/S2 and Regular Rhythm; No Murmur or Rub
GI: Soft, Non Tender, Non Distended and Normal Bowel Sounds; No Organomegaly
Rectal: Deferred by Provider
Musculoskeletal: No Clubbing, No Cyanosis and No Edema
Skin: No Rash
Neuro: Nonfocal/grossly intact
# Acute on chronic functional decline secondary to COVID infection as well as chronic decline secondary to deconditioning/depression
-COVID-positive here
-Blood pressure stabilized
-On room air.
-Chest x-ray shows small left pleural effusion with adjacent left basilar opacity which is unchanged from prior
-No treatment necessary for COVID
-Knot Tier consult for lack of oral intake
-PT/OT
# Acute kidney injury secondary to hypovolemia
# Chronic urianry retention
-Creatinine of 3.2
-IV fluids
-Continue with Graves catheter. Was due for voiding trial tomorrow. Currently patient with decreased mobility and thus we will continue with Graves. If with increasing mobility then can consider trial of voiding prior to discharge or at SNF
-follow-up outpatient with Dr. Casey. Graves was exchanged a few weeks ago
-Renally dose medication
-will ask nephro for input
# Hypokalemia
-Potassium repletion
# Worsening transaminitis likely secondary to COVID
-Continue to monitor
# Recent hematuria secondary to catheter associated UTI
-Urinalysis shows red blood cells but no signs of infection
-Patient has urology follow-up scheduled for next week
# Anxiety/depression
-Outpatient follow-up with psychiatry
Recent C2 fracture
-Wearing neck collar
-Op neurosurgery follow up
Recently diagnosed Parkinsons
-Started on carbidopa levodopa 3 days ago due to shuffling gait
Chronic HFpEF
Hypertrophic obstructive cardiomyopathy
PFO
Bicuspid aortic valve without subaortic membrane
Paroxysmal atrial fibrillation
-Continue amiodarone
-Continue diltiazem
-Continue Xarelto reduced dose of 15 mg. If no significant improvement in creatinine clearance family to consider switching to Eliquis.
Hypothyroidism
-Continue levothyroxine, liothyronine
Essential hypertension
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
Dementia unknown if with behavioral disturbances are not
-Continue to monitor mentation
DNR/DNI
DVT prophylaxis�heparin
Discussed with patient spouse at bedside in details
Anticipated Discharge: > 48 hours
Subjective/Interval History
-
Date of Service: October 12, 2024
pleasantly confused as history fo dementia
cervical collar in place
drinking water
on room air
spouse at bedside-decrease appetite at home.
Objective Data
-
Labs:
Laboratory Results
10/12/24
07:26
WBC 7.5
Hgb 13.7
Hct 41.9
Plt Count 216
Sodium 135
Potassium 3.2 L
Chloride 102
Carbon Dioxide 23
BUN 50 H
Creatinine 3.2 H
Glucose 74
Calcium 8.2 L
Total Bilirubin 1.0
AST 129 H
ALT 89 H
Alkaline Phosphatase 134 H
Vital Signs:
Vital Signs
Temp Pulse Resp BP Pulse Ox
97.5 F 72 18 158/87 98
10/12/24 07:16 10/12/24 08:42 10/12/24 07:16 10/12/24 08:42 10/12/24 08:00
I&O
10/11/24 10/12/24 10/13/24
06:59 06:59 06:59
Intake Total 337 / 337
Output Total 560 / 560
Balance -223 / -223
Data Reviewed
-
Total Time Spent with Patient (in minutes): 56
[2024-10-12] MEDS: KCL 40 MEQ PO (13:15)
--- NOTE | 2024-10-12 13:26 | W.CON.NEPH ---
Consultation
-
Date/Time Consultation Requested: 10/12/2024 11 AM
Date/Time Consultation Performed: 10/12/2024 12 PM
Requesting Provider: Dr. Giordano
Performing Provider: Dr. Small
Reason for Consultation: JOCELIN
Medical History
-
Chief Complaint: Failure to thrive
History of Present Illness:
This is an 78-year-old female who has hypertension on currently monotherapy regimen, urinary retention with chronic Graves catheter with failed voiding trial in August, paroxysmal atrial fibrillation on anticoagulation, heart failure preserved
ejection fraction on she had a fall in August resulting in a nondisplaced C2 fracture for which a neck collar was placed for 10 to 12 weeks time. In October. She was also noted to have urinary retention and a Graves catheter was placed. In rehab
there was an attempt at trial of void which she had failed. It sounds like there was going to be another voiding trial recently. Recently however her clinical status has declined appetite is decreased she has developed a cough. She recently
started antibiotics for a urinary tract infection including ciprofloxacin. Given her progressive decline she was brought to the emergency room. She was found to be COVID-positive. Graves catheter was draining urine excessively. She was noted to
have a creatinine of 3.2 up from her baseline of 0.8
Past Medical History
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
Tonsillectomy and Teratoma removed
Social History
Tobacco: Non-Smoker
Alcohol: None
Family History
Family History: Not Pertinent
Allergies / Home Medications
Allergy/AdvReac Type Severity Reaction Status Date / Time
spironolactone Allergy Intermediate Pharmacy Verified 10/11/24 12:42
to Review
amlodipine Allergy Unknown Unknown Verified 10/11/24 12:42
benazepril Allergy Unknown Unknown Verified 10/11/24 12:42
chlorthalidone Allergy Unknown Unknown Verified 10/11/24 12:42
indapamide Allergy Unknown Unknown Verified 10/11/24 12:42
losartan Allergy Unknown Unknown Verified 10/11/24 12:42
methyldopa Allergy Unknown Unknown Verified 10/11/24 12:42
metoprolol Allergy Unknown Unknown Verified 10/11/24 12:42
nebivolol Allergy Unknown Unknown Verified 10/11/24 12:42
codeine [Codeine] Allergy upset Verified 10/11/24 12:42
stomach
latex Allergy itchy hands Verified 10/11/24 12:42
�Medication �Instructions �Recorded �Confirmed �Type
levothyroxine 100 mcg tablet 100 mcg PO SUMOTUWETHFR@0500 11/29/19 10/11/24 History
Thyroid
diltiazem HCl 180 mg 180 mg PO DAILY Heart 09/18/21 10/11/24 History
capsule,extended release 24 hr Disease/Condition
rivaroxaban 20 mg tablet (Xarelto) 20 mg PO QPM Blood Clot 09/18/21 10/11/24 History
Prevention/Tx
liothyronine 5 mcg tablet 5 mcg PO DAILY@0500 Thyroid 08/14/23 10/11/24 History
amiodarone 200 mg tablet (Pacerone) 200 mg PO DAILY #90 tabs 08/15/23 10/11/24 Rx
Vitamin K2 Plus K1 1 cap PO DAILY 10/11/24 10/11/24 History
carbidopa 25 mg-levodopa 100 mg 1 tab PO DIRECTED Neurological 10/11/24 10/11/24 History
tablet (Sinemet) Condition
ciprofloxacin HCl 500 mg tablet 500 mg PO BID Infection 10/11/24 10/11/24 History
(Cipro)
coQ10 (ubiquinol) 100 mg capsule 100 mg PO DAILY 10/11/24 10/11/24 History
cyanocobalamin (vitamin B-12) 1,000 mcg sublingual DAILY 10/11/24 10/11/24 History
1,000 mcg sublingual tablet Supplement
polyethylene glycol 3350 17 gram 8.5 g PO DAILY Constipation 10/11/24 10/11/24 History
oral powder packet (Miralax)
Review of Systems
-
No chest pain or shortness of breath. Chronic Graves catheter
All other systems: Negative unless noted
Physical Exam
Vital Signs
Vital Signs
Temp Pulse Resp BP Pulse Ox
97.5 F 72 18 158/87 98
10/12/24 07:16 10/12/24 08:42 10/12/24 07:16 10/12/24 08:42 10/12/24 08:00
Lab Results
WBC 7.5 10^3/uL (4.8-10.8) 10/12/24 07:26
RBC 5.00 10^6/uL (4.20-5.40) 10/12/24 07:26
Hgb 13.7 g/dL (12.0-16.0) 10/12/24 07:26
Hct 41.9 % (37.0-47.0) 10/12/24 07:26
Plt Count 216 10^3/uL (130-400) 10/12/24 07:26
Sodium 135 mmol/L (135-145) 10/12/24 07:26
Potassium 3.2 mmol/L (3.5-5.1) L 10/12/24 07:26
Chloride 102 mmol/L (98-107) 10/12/24 07:26
Carbon Dioxide 23 mmol/L (22-30) 10/12/24 07:26
BUN 50 mg/dl (7-17) H 10/12/24 07:26
Creatinine 3.2 mg/dL (0.6-1.0) H 10/12/24 07:26
eGFR 14.10 10/12/24 07:26
Glucose 74 mg/dl (70-99) 10/12/24 07:26
Calcium 8.2 mg/dl (8.4-10.2) L 10/12/24 07:26
Albumin 3.1 g/dl (3.5-5.0) L 10/12/24 07:26
Laboratory Tests
08/29/24
06:00
Potassium 3.9
Carbon Dioxide 34 H
Creatinine 0.8
Physical Exam
Patient is awake alert oriented and in no distress. Mood and affect were pleasant, insight and judgment were good. Pupils are equal round and reactive to light, extraocular movements are intact, sclera were anicteric. Hearing was normal, ears and
nose are intact. Oropharynx was clear. Neck was supple with trachea midline and no thyromegaly. Heart was regular rate and rhythm without rubs. Lower extremities without edema. Lungs were clear to auscultation bilaterally and with normal
excursion. Abdomen was soft, nontender, with normal active bowel sounds, and no hepatosplenomegaly. Skin was without rash and with normal turgor.
Data Reviewed
-
Radiology: Image Personally Visualized and interpreted (Chest x-ray 10/11/2024 by my reading shows left effusion)
Medical Tests (Nuc Med, Echo etc): Image Personally Visualized and interpreted (EKG on 10/11/2024 by my reading shows sinus rhythm first AV block right bundle branch block lateral Q)
Labs: Labs Reviewed by me
Old Records: Reviewed
Assessment/Plan
-
Assessment
COVID-19
Failure to thrive
Acute kidney injury
Urinary retention with Graves catheter
C2 fracture
Neck brace
Heart failure preserved ejection fraction, hypertrophic cardiomyopathy
Plan
check urine studies
Follow BMP
Check renal ultrasound, obstruction less likely
Follow BP, no IV fluids necessary currently
Discussed with
[2024-10-12 15:50] VITALS: BP 146/79
--- NOTE | 2024-10-12 16:02 | CM ---
Patient seen at bedside with
IA completed
Dx: JOCELIN, COVID
PMH: cognitive impairment, HFpEF, hypertrophic obstructive cardiomyopathY
non displaced C2 fx in Aug
Lives with in a 2 story home, 1st floor set up
PLOF: walker, wheelchair
DME: Hospital bed, walker, wheelchair, transport w/c
Current with [facility], [facility] in past (08/23-10/04)
PT rec SNF
PCP: Aylin Meraz
Pharmacy: [facility]
PLAN: SNF, pending bed availability, will need to obtain ins auth
[2024-10-12] MEDS: XARELTO 15 MG PO (17:12)
[2024-10-12] MEDS: CIPRO 500 MG PO (17:13)
[2024-10-12 17:34] VITALS: BMI 20.1
[2024-10-12 18:09] LABS: Urine Sodium 61 mmol/L (30-90)
[2024-10-12 18:33] LABS: Body Fluid for Eosinophils No Eosinophils seen
[2024-10-12 23:04] VITALS: BP 166/87
[2024-10-12] MEDS: NSS IV (23:49)
[2024-10-13 03:29] VITALS: BP 174/86
[2024-10-13] MEDS: TYLENOL 650 MG PO (03:51)
[2024-10-13 05:10] VITALS: BP 176/86
[2024-10-13] MEDS: SYNTHROID 100 MCG PO (05:34)
[2024-10-13] MEDS: CYTOMEL 5 MICROGRAM PO (05:34)
[2024-10-13 06:00] VITALS: BMI 20.8
[2024-10-13] MEDS: CARDIZEM CD 180 MG PO (06:18)
[2024-10-13 06:45] VITALS: BP 131/84
[2024-10-13 08:00] VITALS: BP 131/84
[2024-10-13 08:36] LABS: Blood Urea Nitrogen 44 mg/dl (7-17); Calcium 8.2 mg/dl (8.4-10.2); Carbon Dioxide 24 mmol/L (22-30); Chloride 105 mmol/L (98-107); Estimated Creatinine Clearance 11 ml/min; Glucose 76 mg/dl (70-99); Potassium 3.5 mmol/L (3.5-5.1); Sodium 137 mmol/L (135-145); eGFR 15.87
[2024-10-13] MEDS: SINEMET 25-100 1 TABLET PO ×3 (08:54→21:51)
[2024-10-13] MEDS: VITAMIN B-12 1000 MCG PO (08:54)
[2024-10-13] MEDS: PACERONE 200 MG PO (08:54)
[2024-10-13] MEDS: MIRALAX 8.5 GRAMS PO (08:55)
[2024-10-13] MEDS: LIDOCAINE 4% PATCH TOPICAL ×2 (08:56→09:00)
--- NOTE | 2024-10-13 11:09 | W.PN.NEPH.PH ---
Today's Communication / Plan
-
follow BMP
Assessment/Plan
-
Assessment
COVID-19
Failure to thrive
Acute kidney injury
Urinary retention with Graves catheter
C2 fracture
Neck brace
Heart failure preserved ejection fraction, hypertrophic cardiomyopathy
Plan
Follow BMP
renal ultrasound no obstruction
Follow BP, no IV fluids necessary currently
Discussed with
-
-
Date of Service: October 13, 2024
CC / HPI / ROS
-
Chief Complaint:
JOCELIN
History of Present Illness:
JOCELIN/Cr down to 2.9
poor appetite
BP stable
nonoliguric
Review of Systems:
no CP/SOB
flat affect
Labs
-
Labs:
WBC 7.5 10^3/uL (4.8-10.8) 10/12/24 07:26
RBC 5.00 10^6/uL (4.20-5.40) 10/12/24 07:26
Hgb 13.7 g/dL (12.0-16.0) 10/12/24 07:26
Hct 41.9 % (37.0-47.0) 10/12/24 07:26
Plt Count 216 10^3/uL (130-400) 10/12/24 07:26
Sodium 137 mmol/L (135-145) 10/13/24 06:52
Potassium 3.5 mmol/L (3.5-5.1) 10/13/24 06:52
Chloride 105 mmol/L (98-107) 10/13/24 06:52
Carbon Dioxide 24 mmol/L (22-30) 10/13/24 06:52
BUN 44 mg/dl (7-17) H 10/13/24 06:52
Creatinine 2.9 mg/dL (0.6-1.0) H 10/13/24 06:52
eGFR 15.87 10/13/24 06:52
Glucose 76 mg/dl (70-99) 10/13/24 06:52
Calcium 8.2 mg/dl (8.4-10.2) L 10/13/24 06:52
Albumin 3.1 g/dl (3.5-5.0) L 10/12/24 07:26
Physical Exam
-
Vital Signs:
Vital Signs
Temp Pulse Resp BP Pulse Ox
97.6 F 78 17 131/84 95
10/13/24 08:00 10/13/24 08:54 10/13/24 03:29 10/13/24 08:54 10/13/24 08:00
Cardiovascular:: Regular rate and rhythm
Respiratory:: Bilateral: Coarse
Lung Excursion:: Normal
Abdomen:: Nontender and Soft
Bowel Sounds:: Normal
Extremity Edema:: None: Bilateral:
--- NOTE | 2024-10-13 11:21 | W.PN.HOSP.TC ---
Today's Communication/Plan
-
speech eval
remeron
trend bmp
monitor BP
Assessment / Plan
Assessment / Plan
General: Well Developed, Well Nourished and No Apparent Distress
HEENT: NormoCephalic, Moist mucous membranes and Atraumatic, cervical collar in place
Respiratory: Clear
Cardiac: S1/S2 and Regular Rhythm; No Murmur or Rub
GI: Soft, Non Tender, Non Distended and Normal Bowel Sounds; No Organomegaly
Rectal: Deferred by Provider
Musculoskeletal: No Clubbing, No Cyanosis and No Edema
Skin: No Rash
Neuro: Nonfocal/grossly intact
# Acute on chronic functional decline secondary to COVID infection as well as chronic decline secondary to deconditioning/depression
-COVID-positive here
-Blood pressure stabilized
-On room air.
-Chest x-ray shows small left pleural effusion with adjacent left basilar opacity which is unchanged from prior
-No treatment necessary for COVID
-Dental Associate consult for lack of oral intake
-PT/OT
# Acute kidney injury secondary to hypovolemia
# Chronic urinary retention
-Creatinine of 3.2 to 2.9
-Status post IV fluid. FENA with intrinsic renal disease
-Continue with Graves catheter. Was due for voiding trial tomorrow. Currently patient with decreased mobility and thus we will continue with Graves. If with increasing mobility then can consider trial of voiding prior to discharge or at SNF
-follow-up outpatient with Dr. Casey. Graves was exchanged a few weeks ago
-Renally dose medication. Ultrasound renal negative for hydronephrosis
-w nephrology following.
Dementia unknown if with behavioral disturbances or not
-Continue to monitor mentation
-started on Remeron for appetite stimulant.
- understands pt with end stage dementia.
# Hypokalemia
-Potassium repletion
# Worsening transaminitis likely secondary to COVID
-Continue to monitor
# Recent hematuria secondary to catheter associated UTI
-Urinalysis shows red blood cells but no signs of infection
-Patient has urology follow-up scheduled for next week
# Anxiety/depression
-Outpatient follow-up with psychiatry
Recent C2 fracture
-Wearing neck collar
-Op neurosurgery follow up
Recently diagnosed Parkinsons
-Started on carbidopa levodopa 3 days ago due to shuffling gait
-PT/OT/SPeech eval
Chronic HFpEF
Hypertrophic obstructive cardiomyopathy
PFO
Bicuspid aortic valve without subaortic membrane
Paroxysmal atrial fibrillation
-Continue amiodarone
-Continue diltiazem
-Continue Xarelto reduced dose of 15 mg. If no significant improvement in creatinine clearance family to consider switching to Eliquis.
Hypothyroidism
-Continue levothyroxine, liothyronine
Essential hypertension
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
DNR/DNI
DVT prophylaxis�Xarelto
Discussed with patient spouse at bedside in details
Anticipated Discharge: > 48 hours
Subjective/Interval History
-
Date of Service: October 13, 2024
remains with poor appetite
on room air
Objective Data
-
Labs:
Laboratory Results
10/13/24
06:52
Sodium 137
Potassium 3.5
Chloride 105
Carbon Dioxide 24
BUN 44 H
Creatinine 2.9 H
Glucose 76
Calcium 8.2 L
Vital Signs:
Vital Signs
Temp Pulse Resp BP Pulse Ox
97.6 F 78 17 131/84 95
10/13/24 08:00 10/13/24 08:54 10/13/24 03:29 10/13/24 08:54 10/13/24 08:00
I&O
10/12/24 10/13/24 10/14/24
06:59 06:59 06:59
Intake Total 337 / 337 980 / 980
Output Total 560 / 560 1225 / 1225
Balance -223 / -223 -245 / -245
Data Reviewed
-
Total Time Spent with Patient (in minutes): 55
--- NOTE | 2024-10-13 13:53 | PN.CDI ---
CDI
- -
CDI:
Physician Documentation Request
Admit Date: 10/11/24 15:41
Dear Doctor Pasquale,
Patient admitted with COVID-19.
10/11 Nursing skin assessment, 'Deep Tissue Injury (DTI) right heel , POA....Stage 1 sacral pressure injury, POA.'
Physician documentation of the type and location of wounds is required for compliant documentation. Based on the above clinical findings and your assessment, please provide the following in your progress note:
Type (etiology) of ulcer/wound:
- Pressure (decubitus) ulcer
- Other
For a pressure ulcer, please also include the stage* of the ulcer:
- Stage 1 - Skin intact, non-blanchable redness
- Stage 2 - Partial thickness loss of dermis, includes intact or open blister
- Stage 3 - Full thickness tissue not including bone, tendon or muscle
- Stage 4 - Full thickness tissue loss, including exposed bone, tendon or muscle
- Unstageable - Full thickness loss in which the base of the ulcer is covered by slough (yellow, johnson, valle, green or brown) and/or eschar (johnson, brown or black) in the wound bed.
- Unable to determine
Use of terms such as suspected, likely, concern for, or probable (associated with a specific diagnosis that is being evaluated, monitored, or treated as if it exists) are acceptable and can be coded in the inpatient setting, when documented at the
time of discharge.
Thank you,
Bea DILLON,RN,CCDS
CDI Specialist
Available via tiger text
Please use your independent medical judgment in providing your response.
*Source: National Pressure Ulcer Advisory Panel (NPUAP)
--- NOTE | 2024-10-13 14:55 | PTOTSP ---
Speech Therapy Evaluation:
Pt exhibits clinical signs of oropharyngeal dysphagia, likely chronic in nature related to hx of cognitive impairment and Parkinson's, compounded by generalized weakness in the setting of advanced age and FTT. Pt with significantly prolonged
mastication and bolus formation of solids. Pt demonstrated s/sx of aspiration with 1/1 trial of ice chip, 1/2 trials of thin liquids via straw, and following 1/1 bite of cracker. Overall trials limited d/t poor tolerance/participation. Pt's
expressed he did not think pt was aspirating and that coughing was related to covid. S[employer]IOR [employer] DEVELOPER did note 1 dry cough outside of PO intake, however expressed concern for penetration and/or aspiration given increased coughing immediately following PO. WBC
WNL. Pt afebrile. CXR with L basilar opacity. No hx of PNA.
Discussed with pt's that pt would benefit from VSE given hx of Parkinson's, cognitive impairment, and s/sx of aspiration during assessment, though pt's limited acceptance of PO may inhibit participation in study. Pt's agreed pt very
well may not tolerate barium. SENIOR [employer] DEVELOPER to follow to assess appropriateness/readiness.
Recommend:
1. Diet downgrade to IDDSI Level 5 (minced and moist) solids and thin liquids
2. Medications crushed in puree
3. 1:1 supervision and assistance with meals
4. d/c oral diet if worsening in chest imaging or respiratory status
5. SENIOR [employer] DEVELOPER to follow to monitor tolerance of diet, determine need for further modifications and/or advancements, and determine if/when VSE appropriate
[2024-10-13 15:28] VITALS: BP 151/86
--- NOTE | 2024-10-13 16:43 | CM ---
Patient chart reviewed
Current with [facility]
ST eval today
PT rec SNF
Options reviewed with - will get back to CM
Will need insurance auth
PLAN: SNF, pending bed availability when medically stable
[2024-10-13] MEDS: CIPRO 500 MG PO (17:02)
[2024-10-13] MEDS: XARELTO 15 MG PO (17:03)
[2024-10-13] MEDS: REMERON 7.5 MG PO (21:51)
[2024-10-13] MEDS: MELATONIN 5 MG PO (21:51)
[2024-10-13 23:18] VITALS: BP 149/79
[2024-10-14 03:15] VITALS: BP 137/79
[2024-10-14 06:00] VITALS: BMI 20.5
[2024-10-14] MEDS: CYTOMEL 5 MICROGRAM PO (06:08)
[2024-10-14] MEDS: SYNTHROID 100 MCG PO (06:09)
[2024-10-14 07:00] VITALS: BP 167/74
[2024-10-14 08:26] LABS: Blood Urea Nitrogen 41 mg/dl (7-17); Calcium 8.4 mg/dl (8.4-10.2); Carbon Dioxide 29 mmol/L (22-30); Chloride 105 mmol/L (98-107); Estimated Creatinine Clearance 12 ml/min; Glucose 67 mg/dl (70-99); Potassium 3.2 mmol/L (3.5-5.1); Sodium 140 mmol/L (135-145); eGFR 16.55
[2024-10-14] MEDS: PACERONE 200 MG PO (09:11)
[2024-10-14] MEDS: VITAMIN B-12 1000 MCG PO (09:11)
[2024-10-14] MEDS: LIDOCAINE 4% PATCH TOPICAL (09:14)
[2024-10-14] MEDS: MIRALAX PO (09:14)
[2024-10-14] MEDS: SINEMET 25-100 1 TABLET PO ×3 (09:14→22:25)
[2024-10-14] MEDS: KCL 270 MEQ IV (09:16)
[2024-10-14] MEDS: CARDIZEM 60 MG PO ×3 (09:21→22:28)
[2024-10-14] MEDS: CARDIZEM CD PO (09:23)
--- NOTE | 2024-10-14 11:56 | W.PN.NEPH.PH ---
Today's Communication / Plan
-
Follow BMP
follow bp
may need to add low dose alpha blockers for HTN
Assessment/Plan
-
Assessment
COVID-19
Failure to thrive
Acute kidney injury
Urinary retention with Graves catheter
C2 fracture
Neck brace
Heart failure preserved ejection fraction, hypertrophic cardiomyopathy
Plan
Creatinine slowly improving to 2.8
Nonoliguric via Graves 1200 cc
Follow BMP
renal ultrasound no obstruction
Follow BP, no IV fluids necessary currently
-
-
Date of Service: October 14, 2024
CC / HPI / ROS
-
Chief Complaint:
JOCELIN
History of Present Illness:
JOCELIN/Cr down to 2.8
poor appetite
BP stable but higher side
nonoliguric
Review of Systems:
no CP/SOB
flat affect
Labs
-
Labs:
WBC 7.5 10^3/uL (4.8-10.8) 10/12/24 07:26
RBC 5.00 10^6/uL (4.20-5.40) 10/12/24 07:26
Hgb 13.7 g/dL (12.0-16.0) 10/12/24 07:26
Hct 41.9 % (37.0-47.0) 10/12/24 07:26
Plt Count 216 10^3/uL (130-400) 10/12/24 07:26
Sodium 140 mmol/L (135-145) 10/14/24 07:00
Potassium 3.2 mmol/L (3.5-5.1) L 10/14/24 07:00
Chloride 105 mmol/L (98-107) 10/14/24 07:00
Carbon Dioxide 29 mmol/L (22-30) 10/14/24 07:00
BUN 41 mg/dl (7-17) H 10/14/24 07:00
Creatinine 2.8 mg/dL (0.6-1.0) H 10/14/24 07:00
eGFR 16.55 10/14/24 07:00
Glucose 67 mg/dl (70-99) L 10/14/24 07:00
Calcium 8.4 mg/dl (8.4-10.2) 10/14/24 07:00
Albumin 3.1 g/dl (3.5-5.0) L 10/12/24 07:26
Physical Exam
-
Vital Signs:
Vital Signs
Temp Pulse Resp BP Pulse Ox
97.6 F 95 16 167/74 95
10/14/24 07:00 10/14/24 09:21 10/14/24 07:00 10/14/24 09:21 10/14/24 08:00
Cardiovascular:: Regular rate and rhythm
Respiratory:: Bilateral: Coarse
Lung Excursion:: Normal
Abdomen:: Nontender and Soft
Bowel Sounds:: Normal
Extremity Edema:: None: Bilateral:
--- NOTE | 2024-10-14 12:04 | W.PN.HOSP.TC ---
Today's Communication/Plan
-
Monitor creatinine
Monitor p.o. intake
Encourage p.o. intake
Continue with appetite stimulant
Assessment / Plan
Assessment / Plan
General: Well Developed, Well Nourished and No Apparent Distress
HEENT: NormoCephalic, Moist mucous membranes and Atraumatic, cervical collar in place
Respiratory: Clear
Cardiac: S1/S2 and Regular Rhythm; No Murmur or Rub
GI: Soft, Non Tender, Non Distended and Normal Bowel Sounds; No Organomegaly
Rectal: Deferred by Provider
Musculoskeletal: No Clubbing, No Cyanosis and No Edema
Skin: No Rash
Neuro: Nonfocal/grossly intact
# Acute on chronic functional decline secondary to COVID infection as well as chronic decline secondary to deconditioning/depression
-COVID-positive here
-On room air.
-Chest x-ray shows small left pleural effusion with adjacent left basilar opacity which is unchanged from prior
-No treatment necessary for COVID
-[employer] Magistrate consult for lack of oral intake
-PT/OT
# Acute kidney injury secondary to hypovolemia
# Chronic urinary retention
-Creatinine of 3.2 to 2.8
-Status post IV fluid. FENA with intrinsic renal disease
-Continue with Graves catheter. Was due for voiding trial tomorrow. Currently patient with decreased mobility and thus we will continue with Graves. If with increasing mobility then can consider trial of voiding prior to discharge or at SNF
-follow-up outpatient with Dr. Casey. Graves was exchanged a few weeks ago
-Renally dose medication. Ultrasound renal negative for hydronephrosis
-w nephrology following.
Dementia unknown if with behavioral disturbances or not
FTT-severely decreased appetite, mild weight loss
-Continue to monitor mentation
-started on Remeron for appetite stimulant.
- understands pt with end stage dementia.
Primary HTN
-Elevated. Cardizem CD switched to 60mg TID
-May need additional agents
-nephro following. agree with alpha anum.
# Hypokalemia
-Potassium repletion
# Polymicrobial UTI with staph and Pseudomonas
-Decrease in Pseudomonas CFU. Continue with Cipro for now. Patient was already on Cipro prior to arrival. Renally dosed.
# Worsening transaminitis likely secondary to COVID
-Continue to monitor
# Recent hematuria secondary to catheter associated UTI
-Urinalysis shows red blood cells but no signs of infection
-Patient has urology follow-up scheduled for next week
# Anxiety/depression
-started on remeron. monitor for now.
Recent C2 fracture
-Wearing neck collar
-Op neurosurgery follow up
Recently diagnosed Parkinsons
-Started on carbidopa levodopa 3 days ago due to shuffling gait
-PT/OT/SPeech eval
Chronic HFpEF
Hypertrophic obstructive cardiomyopathy
PFO
Bicuspid aortic valve without subaortic membrane
Paroxysmal atrial fibrillation
-Continue amiodarone
-Continue diltiazem monitor a 180 mg CD willh switch to 60 3 times daily as patient keeps crushing tablets.
-Continue Xarelto reduced dose of 15 mg. If no significant improvement in creatinine clearance family to consider switching to Eliquis.
Hypothyroidism
-Continue levothyroxine, liothyronine
Right heel DTI-poa
Stage I sacral pressure injury-poa
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
DNR/DNI
DVT prophylaxis�Xarelto
PT/OT-probably will require SNF
Discussed with patient spouse at bedside in details
Anticipated Discharge: > 48 hours
Subjective/Interval History
-
Date of Service: October 14, 2024
slept well last night
ate yogurt overnight but remains with poor appetite overall
some weight loss recently
Objective Data
-
Labs:
Laboratory Results
10/14/24
07:00
Sodium 140
Potassium 3.2 L
Chloride 105
Carbon Dioxide 29
BUN 41 H
Creatinine 2.8 H
Glucose 67 L
Calcium 8.4
Vital Signs:
Vital Signs
Temp Pulse Resp BP Pulse Ox
97.6 F 95 16 167/74 95
10/14/24 07:00 10/14/24 09:21 10/14/24 07:00 10/14/24 09:21 10/14/24 08:00
I&O
10/13/24 10/14/24 10/15/24
06:59 06:59 06:59
Intake Total 980 / 980 135 / 135
Output Total 1225 / 1225 1275 / 1275
Balance -245 / -245 -1140 / -1140
Data Reviewed
-
Total Time Spent with Patient (in minutes): 55
[2024-10-14 13:52] VITALS: BP 148/58; PULSE 90
[2024-10-14 13:53] VITALS: BP 148/70; O2SAT 95
--- NOTE | 2024-10-14 15:38 | CM ---
patient seen at bedside with
Discussion regarding PT rec SNF - declines SNF
states wants to patient to return to home with [facility]
Pamphlets given for private aides
PLAN: Home when medically stable, [facility], declines SNF
[2024-10-14] MEDS: XARELTO 15 MG PO (18:33)
[2024-10-14] MEDS: CIPRO 500 MG PO (18:34)
[2024-10-14] MEDS: MELATONIN 5 MG PO (22:24)
[2024-10-14] MEDS: REMERON 7.5 MG PO (22:25)
[2024-10-14 23:09] VITALS: BP 142/89
[2024-10-15 03:05] VITALS: BP 162/96
[2024-10-15] MEDS: CYTOMEL 5 MICROGRAM PO (05:42)
[2024-10-15 06:00] VITALS: BMI 20.2
[2024-10-15 06:30] LABS: Blood Urea Nitrogen 38 mg/dl (7-17); Carbon Dioxide 26 mmol/L (22-30); Chloride 108 mmol/L (98-107); Estimated Creatinine Clearance 12 ml/min; Glucose 75 mg/dl (70-99); Potassium 3.7 mmol/L (3.5-5.1); Sodium 141 mmol/L (135-145); eGFR 18.09
[2024-10-15 07:00] VITALS: BP 131/87
[2024-10-15] MEDS: LIDOCAINE 4% PATCH TOPICAL (08:31)
[2024-10-15] MEDS: MIRALAX 8.5 GRAMS PO (08:32)
[2024-10-15] MEDS: SINEMET 25-100 1 TABLET PO ×3 (08:33→20:39)
[2024-10-15] MEDS: VITAMIN B-12 1000 MCG PO (08:33)
[2024-10-15] MEDS: PACERONE 200 MG PO (08:33)
[2024-10-15] MEDS: CARDIZEM 60 MG PO ×3 (08:33→20:39)
--- NOTE | 2024-10-15 10:14 | W.PN.HOSP.TC ---
Today's Communication/Plan
-
Diet modified to vegan
Monitor p.o. intake
Trend BMP
Monitor blood pressure
Long-term prognosis guarded
Assessment / Plan
Assessment / Plan
General: Well Developed, Well Nourished and No Apparent Distress
HEENT: NormoCephalic, Moist mucous membranes and Atraumatic, cervical collar in place
Respiratory: Clear
Cardiac: S1/S2 and Regular Rhythm; No Murmur or Rub
GI: Soft, Non Tender, Non Distended and Normal Bowel Sounds; No Organomegaly
Rectal: Deferred by Provider
Musculoskeletal: No Clubbing, No Cyanosis and No Edema
Skin: No Rash
Neuro: Nonfocal/grossly intact, apparent dementia
# Acute on chronic functional decline secondary to COVID infection as well as chronic decline secondary to deconditioning/depression
-COVID-positive here
-On room air.
-Chest x-ray shows small left pleural effusion with adjacent left basilar opacity which is unchanged from prior
-No treatment necessary for COVID
-[employer] Manager consult for lack of oral intake
-PT/OT
# Acute kidney injury secondary to hypovolemia
# Chronic urinary retention
-Creatinine of 3.2 to 2.6
-Status post IV fluid. FENA with intrinsic renal disease
-Continue with Graves catheter. Was due for voiding trial tomorrow. Currently patient with decreased mobility and thus we will continue with Graves. If with increasing mobility then can consider trial of voiding prior to discharge or at SNF
-follow-up outpatient with Dr. Casey. Graves was exchanged a few weeks ago
-Renally dose medication. Ultrasound renal negative for hydronephrosis
-w nephrology following.
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
FTT-severely decreased appetite, mild weight loss
-Continue to monitor mentation
-started on Remeron for appetite stimulant.
-Not an appropriate feeding tube candidate as high risk of tube removal. Spouse agrees. Unclear how much well abdominal binder might play. Doubt she will be able to tolerate DHT.
- understands pt with end stage dementia.
Primary HTN
-Elevated. Cardizem CD switched to 60mg TID
-May need additional agents BP improved to 131/87
-nephro following. agree with alpha anum.
# Hypokalemia
-Potassium repletion prn
# Polymicrobial UTI with staph and Pseudomonas
-Decrease in Pseudomonas CFU. Continue with Cipro for now. Patient was already on Cipro prior to arrival. Renally dosed.
# Worsening transaminitis likely secondary to COVID
-Continue to monitor
# Recent hematuria secondary to catheter associated UTI
-Urinalysis shows red blood cells but no signs of infection
-Patient has urology follow-up scheduled for next week
# Anxiety/depression
-started on remeron. monitor for now.
Recent C2 fracture
-Wearing neck collar
-Op neurosurgery follow up
Recently diagnosed Parkinsons
-Started on carbidopa levodopa 3 days ago due to shuffling gait
-PT/OT/SPeech eval
Chronic HFpEF
Hypertrophic obstructive cardiomyopathy
PFO
Bicuspid aortic valve without subaortic membrane
Paroxysmal atrial fibrillation
-Continue amiodarone
-Continue diltiazem monitor a 180 mg CD willh switch to 60 3 times daily as patient keeps crushing tablets.
-Continue Xarelto reduced dose of 15 mg. If no significant improvement in creatinine clearance family to consider switching to Eliquis.
Hypothyroidism
-Continue levothyroxine, liothyronine
Right heel DTI-poa
Stage I sacral pressure injury-poa
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
DNR/DNI
DVT prophylaxis�Xarelto
PT/OT-probably will require SNF
Discussed with patient spouse at bedside in details. Hospice was brought up and not well received it.
Anticipated Discharge: > 48 hours
Subjective/Interval History
-
Date of Service: October 15, 2024
remains with poor appetite
slept well overnight
mild agitation today
on room air
Objective Data
-
Labs:
Laboratory Results
10/15/24
05:57
Sodium 141
Potassium 3.7
Chloride 108 H
Carbon Dioxide 26
BUN 38 H
Creatinine 2.6 H
Glucose 75
Calcium 9.0
Vital Signs:
Vital Signs
Temp Pulse Resp BP Pulse Ox
97.7 F 73 16 131/87 96
10/15/24 07:00 10/15/24 07:00 10/15/24 07:00 10/15/24 07:00 10/15/24 07:00
I&O
10/14/24 10/15/24 10/16/24
06:59 06:59 06:59
Intake Total 135 / 135 470 / 470
Output Total 1275 / 1275 950 / 950
Balance -1140 / -1140 -480 / -480
Data Reviewed
-
Total Time Spent with Patient (in minutes): 55
--- NOTE | 2024-10-15 10:46 | W.PN.NEPH.PH ---
Today's Communication / Plan
-
Observe
Assessment/Plan
-
Assessment
COVID-19
Failure to thrive
Acute kidney injury
Urinary retention with Graves catheter
C2 fracture
Neck brace
Heart failure preserved ejection fraction, hypertrophic cardiomyopathy
Plan
Creatinine slowly improving to 2.6
Nonoliguric via Graves 950 cc
Follow BMP
renal ultrasound no obstruction
Follow BP, no IV fluids necessary currently
-
-
Date of Service: October 15, 2024
CC / HPI / ROS
-
Chief Complaint:
JOCELIN
History of Present Illness:
JOCELIN/Cr down to 2.6
poor appetite
BP stable but higher side
nonoliguric
Review of Systems:
no CP/SOB
flat affect
Labs
-
Labs:
WBC 7.5 10^3/uL (4.8-10.8) 10/12/24 07:26
RBC 5.00 10^6/uL (4.20-5.40) 10/12/24 07:26
Hgb 13.7 g/dL (12.0-16.0) 10/12/24 07:26
Hct 41.9 % (37.0-47.0) 10/12/24 07:26
Plt Count 216 10^3/uL (130-400) 10/12/24 07:26
Sodium 141 mmol/L (135-145) 10/15/24 05:57
Potassium 3.7 mmol/L (3.5-5.1) 10/15/24 05:57
Chloride 108 mmol/L (98-107) H 10/15/24 05:57
Carbon Dioxide 26 mmol/L (22-30) 10/15/24 05:57
BUN 38 mg/dl (7-17) H 10/15/24 05:57
Creatinine 2.6 mg/dL (0.6-1.0) H 10/15/24 05:57
eGFR 18.09 10/15/24 05:57
Glucose 75 mg/dl (70-99) 10/15/24 05:57
Calcium 9.0 mg/dl (8.4-10.2) 10/15/24 05:57
Albumin 3.1 g/dl (3.5-5.0) L 10/12/24 07:26
Physical Exam
-
Vital Signs:
Vital Signs
Temp Pulse Resp BP Pulse Ox
97.7 F 73 16 131/87 96
10/15/24 07:00 10/15/24 07:00 10/15/24 07:00 10/15/24 07:00 10/15/24 07:00
Cardiovascular:: Regular rate and rhythm
Respiratory:: Bilateral: Coarse
Lung Excursion:: Normal
Abdomen:: Nontender and Soft
Bowel Sounds:: Normal
Extremity Edema:: None: Bilateral:
[2024-10-15 16:42] VITALS: BP 162/96
[2024-10-15] MEDS: XARELTO 15 MG PO (17:04)
[2024-10-15] MEDS: CIPRO 500 MG PO (17:04)
[2024-10-15 17:38] VITALS: BP 162/96
[2024-10-15] MEDS: MELATONIN 5 MG PO (20:39)
[2024-10-15] MEDS: SENOKOT-S 1 TABLET PO (20:39)
[2024-10-15] MEDS: REMERON 7.5 MG PO (20:39)
[2024-10-15] MEDS: DULCOLAX 10 MG PO (20:39)
[2024-10-15 23:48] VITALS: BP 151/84
[2024-10-16] MEDS: SYNTHROID 100 MCG PO (04:38)
[2024-10-16] MEDS: CYTOMEL 5 MICROGRAM PO (04:38)
[2024-10-16 06:00] VITALS: BMI 20.2
[2024-10-16 06:05] LABS: ALT (SGPT) 33 U/L (0-35); AST (SGOT) 70 U/L (14-36); Alkaline Phosphatase 125 U/L (38-126); Blood Urea Nitrogen 33 mg/dl (7-17); Calcium 9.2 mg/dl (8.4-10.2); Carbon Dioxide 29 mmol/L (22-30); Chloride 108 mmol/L (98-107); Direct Bilirubin 0.4 mg/dl (0.0-0.4); Estimated Creatinine Clearance 13 ml/min; Glucose 97 mg/dl (70-99); Potassium 3.3 mmol/L (3.5-5.1); Sodium 142 mmol/L (135-145); Total Protein 5.8 g/dl (6.3-8.2); eGFR 18.97
[2024-10-16 07:00] VITALS: BP 148/87
[2024-10-16] MEDS: MIRALAX 8.5 GRAMS PO (08:47)
[2024-10-16] MEDS: SINEMET 25-100 1 TABLET PO ×3 (08:48→20:23)
[2024-10-16] MEDS: SENOKOT-S 1 TABLET PO ×2 (08:48→20:23)
[2024-10-16] MEDS: PACERONE 200 MG PO (08:48)
[2024-10-16] MEDS: VITAMIN B-12 1000 MCG PO (08:48)
[2024-10-16] MEDS: CARDIZEM 60 MG PO ×3 (08:48→20:23)
[2024-10-16] MEDS: KCL 270 MEQ IV (08:48)
[2024-10-16] MEDS: FLUSH (NSS) 2 FLUSH IV (08:50)
--- NOTE | 2024-10-16 10:38 | W.PN.HOSP.TC ---
Today's Communication/Plan
-
Check abdominal x-ray
Continue Remeron
Encourage increase p.o. intake
Trend BMP
Monitor blood pressure
Assessment / Plan
Assessment / Plan
General: Well Developed, Well Nourished and No Apparent Distress
HEENT: NormoCephalic, Moist mucous membranes and Atraumatic, cervical collar in place
Respiratory: Clear
Cardiac: S1/S2 and Regular Rhythm; No Murmur or Rub
GI: Soft, mildly Tender, Non Distended and Normal Bowel Sounds; No Organomegaly
Rectal: Deferred by Provider
Musculoskeletal: No Clubbing, No Cyanosis and No Edema
Skin: No Rash
Neuro: Nonfocal/grossly intact, apparent dementia
# Acute on chronic functional decline secondary to COVID infection as well as chronic decline secondary to deconditioning/depression
-COVID-positive here
-On room air.
-Chest x-ray shows small left pleural effusion with adjacent left basilar opacity which is unchanged from prior
-No treatment necessary for COVID
-[employer] consult for lack of oral intake
-PT/OT
# Acute kidney injury secondary to hypovolemia
# Chronic urinary retention
-Creatinine of 3.2 to 2.5
-Status post IV fluid. FENA with intrinsic renal disease
-Continue with Graves catheter. Was due for voiding trial tomorrow. Currently patient with decreased mobility and thus we will continue with Graves. If with increasing mobility then can consider trial of voiding prior to discharge or at SNF
-follow-up outpatient with Dr. Casey. Graves was exchanged a few weeks ago
-Renally dose medication. Ultrasound renal negative for hydronephrosis
-w nephrology following.
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
FTT-severely decreased appetite, mild weight loss
-Continue to monitor mentation
-started on Remeron for appetite stimulant.
-Appetite slowly improving
-Not an appropriate feeding tube candidate as high risk of tube removal. Spouse agrees. Unclear how much well abdominal binder might play. Doubt she will be able to tolerate DHT.
- understands pt with end stage dementia.
# Constipation
However with decreased appetite. Continue with bowel regimen
Check abdominal x-ray
Primary HTN
-Elevated. Cardizem CD switched to 60mg TID
-May need additional agents BP improved to 148/80 7 AM meds pending
-nephro following. agree with alpha anum.
# Hypokalemia
-Potassium repletion prn
# Polymicrobial UTI with staph and Pseudomonas
-Decrease in Pseudomonas CFU. Continue with Cipro for now. Patient was already on Cipro prior to arrival. Renally dosed.
# Worsening transaminitis likely secondary to COVID
-Continue to monitor
# Recent hematuria secondary to catheter associated UTI
-Urinalysis shows red blood cells but no signs of infection
-Patient has urology follow-up scheduled for next week
# Anxiety/depression
-started on remeron. monitor for now.
Recent C2 fracture
-Wearing neck collar
-Op neurosurgery follow up
Recently diagnosed Parkinsons
-Started on carbidopa levodopa 3 days ago due to shuffling gait
-PT/OT/SPeech eval
Chronic HFpEF
Hypertrophic obstructive cardiomyopathy
PFO
Bicuspid aortic valve without subaortic membrane
Paroxysmal atrial fibrillation
-Continue amiodarone
-Continue diltiazem monitor a 180 mg CD willh switch to 60 3 times daily as patient keeps crushing tablets.
-Continue Xarelto reduced dose of 15 mg. If no significant improvement in creatinine clearance family to consider switching to Eliquis.
Hypothyroidism
-Continue levothyroxine, liothyronine
Right heel DTI-poa
Stage I sacral pressure injury-poa
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
DNR/DNI
DVT prophylaxis�Xarelto
PT/OT-probably will require SNF
Discussed with patient spouse at bedside in details. Hospice was brought up and not well received it.
Anticipated Discharge: > 48 hours
Subjective/Interval History
-
Date of Service: October 16, 2024
Patient with mild improvement in appetite
Sitting in chair
No bowel movements for 1 week per patient spouse at bedside
No nausea or vomiting
Objective Data
-
Labs:
Laboratory Results
10/16/24
05:03
Sodium 142
Potassium 3.3 L
Chloride 108 H
Carbon Dioxide 29
BUN 33 H
Creatinine 2.5 H
Glucose 97
Calcium 9.2
Total Bilirubin 1.0
AST 70 H
ALT 33
Alkaline Phosphatase 125
Vital Signs:
Vital Signs
Temp Pulse Resp BP Pulse Ox
98.4 F 72 15 148/87 97
10/16/24 07:00 10/16/24 07:00 10/16/24 07:00 10/16/24 07:00 10/16/24 07:00
I&O
10/15/24 10/16/24 10/17/24
06:59 06:59 06:59
Intake Total 470 / 470 160 / 160
Output Total 950 / 950 710 / 710
Balance -480 / -480 -550 / -550
Data Reviewed
-
Total Time Spent with Patient (in minutes): 55
--- NOTE | 2024-10-16 11:34 | W.PN.NEPH.PH ---
Today's Communication / Plan
-
Follow BMP
Assessment/Plan
-
Assessment
COVID-19
Failure to thrive
Acute kidney injury
Urinary retention with Graves catheter
C2 fracture
Neck brace
Heart failure preserved ejection fraction, hypertrophic cardiomyopathy
Plan
Creatinine slowly improving to 2.5
Nonoliguric via Graves 700 cc, weights down
Follow BMP
renal ultrasound no obstruction
-
-
Date of Service: October 16, 2024
CC / HPI / ROS
-
Chief Complaint:
JOCELIN
History of Present Illness:
JOCELIN/Cr down to 2.5
poor appetite
BP stable but higher side
nonoliguric
Review of Systems:
no CP/SOB
flat affect
Labs
-
Labs:
WBC 7.5 10^3/uL (4.8-10.8) 10/12/24 07:26
RBC 5.00 10^6/uL (4.20-5.40) 10/12/24 07:26
Hgb 13.7 g/dL (12.0-16.0) 10/12/24 07:26
Hct 41.9 % (37.0-47.0) 10/12/24 07:26
Plt Count 216 10^3/uL (130-400) 10/12/24 07:26
Sodium 142 mmol/L (135-145) 10/16/24 05:03
Potassium 3.3 mmol/L (3.5-5.1) L 10/16/24 05:03
Chloride 108 mmol/L (98-107) H 10/16/24 05:03
Carbon Dioxide 29 mmol/L (22-30) 10/16/24 05:03
BUN 33 mg/dl (7-17) H 10/16/24 05:03
Creatinine 2.5 mg/dL (0.6-1.0) H 10/16/24 05:03
eGFR 18.97 10/16/24 05:03
Glucose 97 mg/dl (70-99) 10/16/24 05:03
Calcium 9.2 mg/dl (8.4-10.2) 10/16/24 05:03
Albumin 3.0 g/dl (3.5-5.0) L 10/16/24 05:03
Physical Exam
-
Vital Signs:
Vital Signs
Temp Pulse Resp BP Pulse Ox
98.4 F 72 15 148/87 97
10/16/24 07:00 10/16/24 07:00 10/16/24 07:00 10/16/24 07:00 10/16/24 07:00
Cardiovascular:: Regular rate and rhythm
Respiratory:: Bilateral: Coarse
Lung Excursion:: Normal
Abdomen:: Nontender and Soft
Bowel Sounds:: Normal
Extremity Edema:: None: Bilateral:
[2024-10-16] MEDS: FLEET MINERAL OIL ENEMA 133 ML RECTAL (12:11)
[2024-10-16 15:00] VITALS: BP 140/85
--- NOTE | 2024-10-16 16:22 | PTCARENOTE ---
. Mineral oil enema given earlier without success. Pt given a milk of molasses enema due to severe constipation and some small soft stool beginning to show. Pt gabe procedure. Will cont to monitor.
[2024-10-16] MEDS: CIPRO 500 MG PO (17:00)
[2024-10-16] MEDS: XARELTO 15 MG PO (17:00)
[2024-10-16] MEDS: DULCOLAX 10 MG PO (20:23)
[2024-10-16] MEDS: MELATONIN 5 MG PO (20:23)
[2024-10-16] MEDS: REMERON 7.5 MG PO (20:23)
[2024-10-16] MEDS: MIRALAX 17 GRAMS PO (20:25)
[2024-10-16 23:15] VITALS: BP 116/63
[2024-10-17] MEDS: CYTOMEL 5 MICROGRAM PO (04:42)
[2024-10-17] MEDS: SYNTHROID 100 MCG PO (04:42)
[2024-10-17 04:46] VITALS: BMI 19.9
[2024-10-17 07:05] VITALS: BP 153/84
[2024-10-17] MEDS: MIRALAX 17 GRAMS PO ×2 (07:55→20:00)
[2024-10-17] MEDS: SINEMET 25-100 1 TABLET PO ×2 (07:55→21:19)
[2024-10-17] MEDS: VITAMIN B-12 1000 MCG PO (07:55)
[2024-10-17] MEDS: CARDIZEM 60 MG PO ×2 (07:55→21:19)
[2024-10-17] MEDS: SENOKOT-S 1 TABLET PO ×2 (07:55→20:00)
[2024-10-17] MEDS: PACERONE 200 MG PO (07:55)
[2024-10-17 08:12] LABS: Blood Urea Nitrogen 30 mg/dl (7-17); Calcium 9.2 mg/dl (8.4-10.2); Carbon Dioxide 29 mmol/L (22-30); Chloride 109 mmol/L (98-107); Estimated Creatinine Clearance 14 ml/min; Glucose 82 mg/dl (70-99); Potassium 3.7 mmol/L (3.5-5.1); Sodium 146 mmol/L (135-145); eGFR 20.96
--- NOTE | 2024-10-17 10:20 | W.PN.HOSP.TC ---
Today's Communication/Plan
-
hypotonic saline
enocurage po intake
stop melatonin
bowel regimen
cervical xray
Assessment / Plan
Assessment / Plan
General: no apparent distress, chronically ill appearing
HEENT: NormoCephalic, Moist mucous membranes and Atraumatic, cervical collar in place
Respiratory: Clear
Cardiac: S1/S2 and Regular Rhythm; No Murmur or Rub
GI: Soft, mildly Tender, Non Distended and Normal Bowel Sounds; No Organomegaly
buchanan
Rectal: Deferred by Provider
Musculoskeletal: No Clubbing, No Cyanosis and No Edema
Skin: No Rash
Neuro: Nonfocal/grossly intact, apparent dementia
# Acute on chronic functional decline secondary to COVID infection as well as chronic decline secondary to deconditioning/depression
-COVID-positive here
-On room air.
-Chest x-ray shows small left pleural effusion with adjacent left basilar opacity which is unchanged from prior
-No treatment necessary for COVID
-Bodily Injury Adjuster consult for lack of oral intake
-PT/OT
# Acute kidney injury secondary to hypovolemia
# Chronic urinary retention
#Hypernatremia likely secondary to decreased oral intake
-IV fluids per nephrology
-Creatinine of 3.2 to 2.3
-Status post IV fluid. FENA with intrinsic renal disease
-Continue with Buchanan catheter. Was due for voiding trial tomorrow. Currently patient with decreased mobility and thus we will continue with Buchanan. If with increasing mobility then can consider trial of voiding prior to discharge or at SNF
-follow-up outpatient with Dr. Casey. Buchanan was exchanged a few weeks ago
-Renally dose medication. Ultrasound renal negative for hydronephrosis
-w nephrology following.
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
FTT-severely decreased appetite, mild weight loss
-Continue to monitor mentation
-started on Remeron for appetite stimulant.
-Dc melatonin as sleepy this morning.
-Appetite Not improving much. Family leaning towards feeding tube
- understands pt with end stage dementia.
# Constipation
Abd xray with severe stool burden s/p Enema x 2 with good results
Primary HTN
-Elevated. Cardizem CD switched to 60mg TID
-May need additional agents BP improved to 148/80 7 AM meds pending
-nephro following. agree with alpha anum.
# Hypokalemia
-Potassium repletion prn
# Polymicrobial UTI with staph and Pseudomonas
-Decrease in Pseudomonas CFU. Continue with Cipro for now. Patient was already on Cipro prior to arrival. Renally dosed.
# Worsening transaminitis likely secondary to COVID
-Continue to monitor
# Recent hematuria secondary to catheter associated UTI
-Urinalysis shows red blood cells but no signs of infection
-Patient has urology follow-up scheduled for next week
# Anxiety/depression
-started on remeron. monitor for now.
Recent C2 fracture
-Wearing neck collar
-Check cervical xray
Recently diagnosed Parkinsons
-Started on carbidopa levodopa 3 days ago due to shuffling gait
-PT/OT/SPeech eval
Chronic HFpEF
Hypertrophic obstructive cardiomyopathy
PFO
Bicuspid aortic valve without subaortic membrane
Paroxysmal atrial fibrillation
-Continue amiodarone
-Continue diltiazem monitor a 180 mg CD willh switch to 60 3 times daily as patient keeps crushing tablets.
-Continue Xarelto reduced dose of 15 mg. If no significant improvement in creatinine clearance family to consider switching to Eliquis.
Hypothyroidism
-Continue levothyroxine, liothyronine
Right heel DTI-poa
Stage I sacral pressure injury-poa
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
DNR/DNI
DVT prophylaxis�Xarelto
PT/OT-probably will require SNF
Discussed with patient spouse at bedside and, daughter and son over the phone. Discussed about patient significantly poor appetite with decrease in solids and liquid intake leading to dehydration. Family would like to continue with aggressive
measure and may consider feeding tube if needed. Hospice was brought up and not well received.
Anticipated Discharge: > 48 hours
Subjective/Interval History
-
Date of Service: October 17, 2024
sleepy this morning
not awake enough
on room air
Objective Data
-
Labs:
Laboratory Results
10/17/24
06:21
Sodium 146 H
Potassium 3.7
Chloride 109 H
Carbon Dioxide 29
BUN 30 H
Creatinine 2.3 H
Glucose 82
Calcium 9.2
Vital Signs:
Vital Signs
Temp Pulse Resp BP Pulse Ox
98.3 F 74 16 153/84 95
10/17/24 07:05 10/17/24 07:55 10/17/24 07:05 10/17/24 07:55 10/17/24 09:35
I&O
10/16/24 10/17/24 10/18/24
06:59 06:59 06:59
Intake Total 160 / 160 370 / 370
Output Total 710 / 710 1050 / 1050
Balance -550 / -550 -680 / -680
Data Reviewed
-
Total Time Spent with Patient (in minutes): 56
--- NOTE | 2024-10-17 12:16 | W.PN.NEPH.PH ---
Today's Communication / Plan
-
IVF
Assessment/Plan
-
Assessment
COVID-19
Failure to thrive
Acute kidney injury
Urinary retention with Graves catheter
C2 fracture
Neck brace
Heart failure preserved ejection fraction, hypertrophic cardiomyopathy
Plan
encourage po
IVF D5 /2 today
Follow BMP
renal ultrasound no obstruction
-
-
Date of Service: October 17, 2024
CC / HPI / ROS
-
Chief Complaint:
JOCELIN
History of Present Illness:
JOCELIN/Cr down to 2.3
poor appetite
Na up to 146
BP stable but high
nonoliguric
Review of Systems:
no CP/SOB
flat affect
Labs
-
Labs:
WBC 7.5 10^3/uL (4.8-10.8) 10/12/24 07:26
RBC 5.00 10^6/uL (4.20-5.40) 10/12/24 07:26
Hgb 13.7 g/dL (12.0-16.0) 10/12/24 07:26
Hct 41.9 % (37.0-47.0) 10/12/24 07:26
Plt Count 216 10^3/uL (130-400) 10/12/24 07:26
Sodium 146 mmol/L (135-145) H 10/17/24 06:21
Potassium 3.7 mmol/L (3.5-5.1) 10/17/24 06:21
Chloride 109 mmol/L (98-107) H 10/17/24 06:21
Carbon Dioxide 29 mmol/L (22-30) 10/17/24 06:21
BUN 30 mg/dl (7-17) H 10/17/24 06:21
Creatinine 2.3 mg/dL (0.6-1.0) H 10/17/24 06:21
eGFR 20.96 10/17/24 06:21
Glucose 82 mg/dl (70-99) 10/17/24 06:21
Calcium 9.2 mg/dl (8.4-10.2) 10/17/24 06:21
Albumin 3.0 g/dl (3.5-5.0) L 10/16/24 05:03
Physical Exam
-
Vital Signs:
Vital Signs
Temp Pulse Resp BP Pulse Ox
98.3 F 74 16 153/84 95
10/17/24 07:05 10/17/24 07:55 10/17/24 07:05 10/17/24 07:55 10/17/24 09:35
Cardiovascular:: Regular rate and rhythm
Respiratory:: Bilateral: Coarse
Lung Excursion:: Normal
Abdomen:: Nontender and Soft
Bowel Sounds:: Normal
Extremity Edema:: None: Bilateral:
[2024-10-17] MEDS: D5/0.45%NACL 1000 IV (13:38)
[2024-10-17] MEDS: SINEMET 25-100 PO (15:15)
[2024-10-17] MEDS: CARDIZEM PO (15:15)
[2024-10-17 15:54] VITALS: BP 159/91
[2024-10-17] MEDS: XARELTO PO (17:02)
[2024-10-17] MEDS: CIPRO PO (17:02)
[2024-10-17] MEDS: DULCOLAX 10 MG PO (21:19)
[2024-10-17] MEDS: REMERON 7.5 MG PO (21:19)
[2024-10-17 23:48] VITALS: BP 175/85
[2024-10-18] VITALS (8 sets, daily range): BP systolic 107–180; BP diastolic 62–96; PULSE 79; O2SAT 95; BMI 19.5
[2024-10-18] MEDS: CYTOMEL 5 MICROGRAM PO (05:35)
[2024-10-18] MEDS: SYNTHROID 100 MCG PO (05:35)
[2024-10-18 06:51] LABS: Blood Urea Nitrogen 26 mg/dl (7-17); Calcium 8.9 mg/dl (8.4-10.2); Carbon Dioxide 30 mmol/L (22-30); Chloride 109 mmol/L (98-107); Estimated Creatinine Clearance 17 ml/min; Glucose 118 mg/dl (70-99); Potassium 3.3 mmol/L (3.5-5.1); Sodium 145 mmol/L (135-145); eGFR 26.36
[2024-10-18] MEDS: KCL 160 MEQ IV (08:49)
[2024-10-18] MEDS: PACERONE 200 MG PO (08:54)
[2024-10-18] MEDS: SENOKOT-S 1 TABLET PO ×2 (08:54→20:51)
[2024-10-18] MEDS: VITAMIN B-12 1000 MCG PO (08:54)
[2024-10-18] MEDS: CARDIZEM 60 MG PO ×2 (08:54→20:56)
[2024-10-18] MEDS: SINEMET 25-100 1 TABLET PO ×2 (08:54→20:56)
[2024-10-18] MEDS: MIRALAX PO (08:55)
--- NOTE | 2024-10-18 09:13 | PTCARENOTE ---
IV potassium hung and going through R AC. pt unable to swallow medications in applesauce. MD at bedside and made aware.
--- NOTE | 2024-10-18 12:30 | W.PN.HOSP.TC ---
Today's Communication/Plan
-
Start IVF
replete kcl
IV bp meds prn
NSG input
nephro recs
Assessment / Plan
Assessment / Plan
General: no apparent distress, chronically ill appearing, eyes closed and not able to safely swallow,
HEENT: NormoCephalic, Moist mucous membranes and Atraumatic, cervical collar in place
Respiratory: Clear
Cardiac: S1/S2 and Regular Rhythm; No Murmur or Rub
GI: Soft, mildly Tender, Non Distended and Normal Bowel Sounds;
buchanan
Rectal: Deferred by Provider
Musculoskeletal: No Clubbing, No Cyanosis and No Edema
Skin: No Rash
Neuro: Nonfocal/grossly intact, apparent dementia
# Acute on chronic functional decline secondary to COVID infection as well as chronic decline secondary to deconditioning/depression
-COVID-positive here
-On room air.
-Chest x-ray shows small left pleural effusion with adjacent left basilar opacity which is unchanged from prior
-No treatment necessary for COVID
-Wing Scorer consult for lack of oral intake
-PT/OT
# Acute kidney injury secondary to hypovolemia
# Chronic urinary retention
#Hypernatremia likely secondary to decreased oral intake
-IV fluids per nephrology
-Creatinine of 3.2 to 2.3
-Status post IV fluid. FENA with intrinsic renal disease
-Continue with Buchanan catheter. Was due for voiding trial tomorrow. Currently patient with decreased mobility and thus we will continue with Buchanan. If with increasing mobility then can consider trial of voiding prior to discharge or at SNF
-follow-up outpatient with Dr. Casey. Buchanan was exchanged a few weeks ago
-Renally dose medication. Ultrasound renal negative for hydronephrosis
-w nephrology following.
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
FTT-severely decreased appetite, mild weight loss
-Continue to monitor mentation
-started on Remeron for appetite stimulant.
-Dc melatonin
-Appetite Not improving much. Family may be leaning towards feeding tube
-Will give trial of IVF to see if improvement in mentation as with dehydration.
- understands pt with end stage dementia.
# Constipation
Abd xray with severe stool burden s/p Enema x 2 with good results
Primary HTN
-Elevated. Cardizem CD switched to 60mg TID
-May need additional agents
-nephro following. agree with alpha anum.
-Will start IV meds prn.
# Hypokalemia
-Potassium repletion prn
# Polymicrobial UTI with staph and Pseudomonas
-Decrease in Pseudomonas CFU. Continue with Cipro for now. Patient was already on Cipro prior to arrival. Renally dosed.
-completed course of bx.
# Worsening transaminitis likely secondary to COVID
-Continue to monitor
# Recent hematuria secondary to catheter associated UTI
-Urinalysis shows red blood cells but no signs of infection
-Patient has urology follow-up scheduled for next week
# Anxiety/depression
-started on remeron. monitor for now.
Recent C2 fracture
-Wearing neck collar
-Check cervical xray -no comparison flims.
-unclear if playing a role in decrease appetite due to severe discomfort.
-Patient was supposed to see Dr. Sridevi Schaefer as outpatient. Will ask neurosurgery input to see when safe to remove cervical collar and if any further restriction.
Recently diagnosed Parkinsons
-on carbidopa levodopa recently started as outpatient
-PT/OT/SPeech eval
Chronic HFpEF
Hypertrophic obstructive cardiomyopathy
PFO
Bicuspid aortic valve without subaortic membrane
Paroxysmal atrial fibrillation
-Continue amiodarone
-Continue diltiazem monitor a 180 mg CD willh switch to 60 3 times daily as patient keeps crushing tablets.
-Continue Xarelto reduced dose of 15 mg. If no significant improvement in creatinine clearance family to consider switching to Eliquis.
Hypothyroidism
-Continue levothyroxine, liothyronine
Right heel DTI-poa
Stage I sacral pressure injury-poa
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
DNR/DNI
DVT prophylaxis�Xarelto
PT/OT-probably will require SNF
Discussed with patient spouse at bedside and, daughter over the phone once again. Discussed about patient significantly poor appetite with decrease in solids and liquid intake leading to dehydration. Family would like to continue with aggressive
measure.
Anticipated Discharge: > 48 hours
Subjective/Interval History
-
Date of Service: October 18, 2024
ate yogurt
but otherwise not eating much
unable to take meds this morning
per family, pt was awake last night while receiving IVF
BP elevated this morning
Objective Data
-
Labs:
Laboratory Results
10/18/24
05:49
Sodium 145
Potassium 3.3 L
Chloride 109 H
Carbon Dioxide 30
BUN 26 H
Creatinine 1.9 H
Glucose 118 H
Calcium 8.9
Vital Signs:
Vital Signs
Temp Pulse Resp BP Pulse Ox
97.8 F 78 17 165/96 97
10/18/24 07:12 10/18/24 12:08 10/18/24 07:12 10/18/24 12:08 10/18/24 07:12
I&O
10/17/24 10/18/24 10/19/24
06:59 06:59 06:59
Intake Total 370 / 370 490 / 490
Output Total 1050 / 1050 1040 / 1040
Balance -680 / -680 -550 / -550
Data Reviewed
-
Total Time Spent with Patient (in minutes): 55
[2024-10-18] MEDS: APRESOLINE 10 MG IV (12:56)
[2024-10-18] MEDS: D5LR 1000 IV (13:09)
--- NOTE | 2024-10-18 13:09 | PN.CDI ---
CDI
- -
CDI:
Physician Documentation Request
Admit Date: 10/11/24 15:41
Dear Doctor Pasquale,
Patient admitted with COVID infection.
10/17 Nutrition note, 'Due to decreased intakes of <75% estimated energy needs for > or equal to 1 month and wt loss as noted, pt meeting criteria for moderate protein/calorie malnutrition ([facility]/AND guidelines, chronic illness).
Please provide in your note the diagnosis associated with the above nutrition findings and you assessment:
Moderate protein calorie malnutrition
Other
[place] Criteria ([facility] Hospitalist 2017)
2 or more criteria must be present for either
non severe or severe malnutrition
Note that the criteria differs related to the
presence of an acute or chronic illness
Chronic Illness
Energy Intake Non Severe: <75% for >1 month
Severe: <75% for >1 month
Weight Loss Non Severe: 5% over 1 month
7.5% over 3 months
10% over 6 months
20% over 1 year
Severe: >5% over 1 month
>7.5% over 3 months
>10% over 6 months
>20% over 1 year
Body Fat Non Severe: Mild Loss
Severe: Severe Loss
Muscle Mass Non Severe: Mild Loss
Severe: Severe Loss
Fluid Accumulation Non Severe: Mild Accumulation
Severe: Moderate to severe
accumulation
Reduced Communications Writer Strength Non Severe: N/A
Severe: Measurably reduced
Use of terms such as suspected, likely, concern for, or probable (associated with a specific diagnosis that is being evaluated, monitored, or treated as if it exists) are acceptable and can be coded in the inpatient setting, when documented at the
time of discharge.
Thank you,
Bea DILLON,RN,CCDS
CDI Specialist
Available via [employer] text
Please use your independent medical judgment in providing your response.
[2024-10-18] MEDS: CARDIZEM PO (15:48)
[2024-10-18] MEDS: SINEMET 25-100 PO (15:49)
--- NOTE | 2024-10-18 15:57 | W.PN.NEPH.PH ---
Today's Communication / Plan
-
cont IVF
follow labs
Assessment/Plan
-
Assessment
COVID-19
Failure to thrive
Acute kidney injury
Urinary retention with Buchanan catheter
C2 fracture
Neck brace
Heart failure preserved ejection fraction, hypertrophic cardiomyopathy
Plan:
cr improving, non oliguric with buchanan for retention
encourage po
cotn IVF D5 until po intake is better
replace k
Follow BMP
renal ultrasound no obstruction
-
-
Date of Service: October 18, 2024
CC / HPI / ROS
-
Chief Complaint:
JOCELIN
History of Present Illness:
JOCELIN/Cr down to 1.6
poor appetite
Na better at 145, k low 3.3
BP stable
nonoliguric
Review of Systems:
no CP/SOB
flat affect
Labs
-
Labs:
WBC 7.5 10^3/uL (4.8-10.8) 10/12/24 07:26
RBC 5.00 10^6/uL (4.20-5.40) 10/12/24 07:26
Hgb 13.7 g/dL (12.0-16.0) 10/12/24 07:26
Hct 41.9 % (37.0-47.0) 10/12/24 07:26
Plt Count 216 10^3/uL (130-400) 10/12/24 07:26
Sodium 145 mmol/L (135-145) 10/18/24 05:49
Potassium 3.3 mmol/L (3.5-5.1) L 10/18/24 05:49
Chloride 109 mmol/L (98-107) H 10/18/24 05:49
Carbon Dioxide 30 mmol/L (22-30) 10/18/24 05:49
BUN 26 mg/dl (7-17) H 10/18/24 05:49
Creatinine 1.9 mg/dL (0.6-1.0) H 10/18/24 05:49
eGFR 26.36 10/18/24 05:49
Glucose 118 mg/dl (70-99) H 10/18/24 05:49
Calcium 8.9 mg/dl (8.4-10.2) 10/18/24 05:49
Albumin 3.0 g/dl (3.5-5.0) L 10/16/24 05:03
Physical Exam
-
Vital Signs:
Vital Signs
Temp Pulse Resp BP Pulse Ox
97.9 F 80 16 107/62 92
10/18/24 15:06 10/18/24 15:06 10/18/24 15:06 10/18/24 15:06 10/18/24 15:06
Cardiovascular:: Regular rate and rhythm
Lung Excursion:: Abnormal (decreased BS)
Abdomen:: Nontender and Soft
Bowel Sounds:: Normal
Extremity Edema:: None: Bilateral:
Buchanan Catheter: Yes
[2024-10-18] MEDS: XARELTO PO (16:53)
--- NOTE | 2024-10-18 17:12 | CM ---
Met with patient, & daughter
Patient daughter inquired about information on hospice
options - hospice - Referral placed in [facility]
tt hospitalist
PLAN: Hospice consult
[2024-10-18] MEDS: REMERON 7.5 MG PO (20:56)
[2024-10-18] MEDS: MIRALAX 17 GRAMS PO (20:56)
[2024-10-19] MEDS: D5LR 1000 IV ×2 (03:33→16:38)
[2024-10-19 05:06] VITALS: BMI 19.6
[2024-10-19 05:45] VITALS: BMI 19.6
[2024-10-19] MEDS: CYTOMEL 5 MICROGRAM PO (05:48)
[2024-10-19] MEDS: SYNTHROID 100 MCG PO (05:49)
[2024-10-19 07:11] VITALS: BP 152/88
--- NOTE | 2024-10-19 08:14 | CM ---
Case management consult completed for hospice
Daughter requested information about hospice
tt Jessica Trammell
PLAN: Hospice consult
[2024-10-19] MEDS: VITAMIN B-12 1000 MCG PO (08:19)
[2024-10-19] MEDS: PACERONE 200 MG PO (08:19)
[2024-10-19] MEDS: MIRALAX 17 GRAMS PO ×2 (08:19→20:43)
[2024-10-19] MEDS: SENOKOT-S 1 TABLET PO ×2 (08:19→20:43)
[2024-10-19] MEDS: CARDIZEM 60 MG PO ×3 (08:20→20:44)
[2024-10-19] MEDS: SINEMET 25-100 1 TABLET PO ×3 (08:20→20:44)
[2024-10-19 09:08] LABS: Blood Urea Nitrogen 27 mg/dl (7-17); Calcium 8.8 mg/dl (8.4-10.2); Carbon Dioxide 31 mmol/L (22-30); Chloride 109 mmol/L (98-107); Estimated Creatinine Clearance 17 ml/min; Glucose 126 mg/dl (70-99); Potassium 3.2 mmol/L (3.5-5.1); Sodium 144 mmol/L (135-145); eGFR 26.36
--- NOTE | 2024-10-19 09:43 | W.PN.HOSP.TC ---
Today's Communication/Plan
-
Cont with IVF
replete kcl
monitor mentation
Await family decision
Assessment / Plan
Assessment / Plan
General: no apparent distress, chronically ill appearing, eyes closed
HEENT: NormoCephalic, Moist mucous membranes and Atraumatic, cervical collar in place
Respiratory: Clear
Cardiac: S1/S2 and Regular Rhythm; No Murmur or Rub
GI: Soft, mildly Tender, Non Distended and Normal Bowel Sounds;
buchanan
Rectal: Deferred by Provider
Musculoskeletal: No Edema
Skin: No Rash
Neuro: Nonfocal/grossly intact, apparent dementia
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
#FTT-severely decreased appetite, mild weight loss
#Moderate protein caloric malnutrition due to chronic illness
-Continue to monitor mentation
-started on Remeron for appetite stimulant.
-Dc melatonin
-Appetite Not improving much. Family leaning away from feeding tube. However, undecided at this time.
-Will give trial of IVF to see if improvement in mentation as with dehydration.
- understands pt with end stage dementia.
-Hospice on board to give more information for family to decide.
#Acute on chronic functional decline secondary to COVID infection as well as chronic decline secondary to deconditioning/depression
-COVID-positive here
-On room air.
-Chest x-ray shows small left pleural effusion with adjacent left basilar opacity which is unchanged from prior
-No treatment necessary for COVID
-Decorating Supervisor consult for lack of oral intake
-PT/OT
# Acute kidney injury
# Chronic urinary retention
#Hypernatremia likely secondary to decreased oral intake
-IV fluids per nephrology
-Creatinine of 3.2 to 1.9
-Status post IV fluid. FENA with intrinsic renal disease
-Continue with Buchanan catheter. Was due for voiding trial tomorrow. Currently patient with decreased mobility and thus we will continue with Buchanan. If with increasing mobility then can consider trial of voiding prior to discharge or at SNF
-follow-up outpatient with Dr. Casey. Buchanan was exchanged a few weeks ago
-Renally dose medication. Ultrasound renal negative for hydronephrosis
-Na downtrended.
-w nephrology following.
# Constipation
Abd xray with severe stool burden s/p Enema x 2 with good results
having bm.
Primary HTN
-Elevated. Cardizem CD switched to 60mg TID
-May need additional agents
-nephro following. agree with alpha anum.
-Will start IV meds prn.
# Hypokalemia
-Potassium repletion prn
# Polymicrobial UTI with staph and Pseudomonas
-Decrease in Pseudomonas CFU. Continue with Cipro for now. Patient was already on Cipro prior to arrival. Renally dosed.
-completed course of bx.
# Worsening transaminitis likely secondary to COVID
-Continue to monitor
# Recent hematuria secondary to catheter associated UTI
-Urinalysis shows red blood cells but no signs of infection
-Patient has urology follow-up scheduled for next week
# Anxiety/depression
-started on remeron. monitor for now.
Recent C2 fracture
-Wearing neck collar
-Check cervical xray -no comparison flims.
-unclear if playing a role in decrease appetite due to severe discomfort.
-Patient was supposed to see Dr. Sridevi Schaefer as outpatient. Will ask neurosurgery input to see when safe to remove cervical collar and if any further restriction.
Recently diagnosed Parkinsons
-on carbidopa levodopa recently started as outpatient
-PT/OT/SPeech eval
Chronic HFpEF
Hypertrophic obstructive cardiomyopathy
PFO
Bicuspid aortic valve without subaortic membrane
Paroxysmal atrial fibrillation
-Continue amiodarone
-Continue diltiazem monitor a 180 mg CD willh switch to 60 3 times daily as patient keeps crushing tablets.
-Continue Xarelto reduced dose of 15 mg. If no significant improvement in creatinine clearance family to consider switching to Eliquis.
Hypothyroidism
-Continue levothyroxine, liothyronine
Right heel DTI-poa
Stage I sacral pressure injury-poa
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
DNR/DNI
DVT prophylaxis�Xarelto
PT/OT-probably will require SNF
Discussed with patient spouse and daughter at bedside in details. Discussed about patient significantly poor appetite with decrease in solids and liquid intake leading to dehydration.Reiterated that patient has been with significantly low appetite.
IV fluids in the interim to see if with any improvement in mentation as requested by family which has not been seen. Feeding tube versus hospice was discussed. Family to decide. All patient spouse and daughter questions answered to their
utmost satisfaction. Hospice team in room and will give more information and answer there questions.
Anticipated Discharge: > 48 hours
Subjective/Interval History
-
Date of Service: October 19, 2024
remains with poor appetite
not enough caloric intake
restless overnight
took her am pills
Objective Data
-
Labs:
Laboratory Results
10/19/24
07:49
Sodium 144
Potassium 3.2 L
Chloride 109 H
Carbon Dioxide 31 H
BUN 27 H
Creatinine 1.9 H
Glucose 126 H
Calcium 8.8
Vital Signs:
Vital Signs
Temp Pulse Resp BP Pulse Ox
98.6 F 79 17 152/88 95
10/19/24 07:11 10/19/24 08:19 10/19/24 07:11 10/19/24 08:19 10/19/24 07:11
I&O
10/18/24 10/19/24 10/20/24
06:59 06:59 06:59
Intake Total 490 / 490 640 / 640
Output Total 1040 / 1040 200 / 200
Balance -550 / -550 440 / 440
Data Reviewed
-
Total Time Spent with Patient (in minutes): 55
[2024-10-19] MEDS: KCL 270 MEQ IV (10:39)
--- NOTE | 2024-10-19 10:49 | HOSPNOTE ---
Met with spouse and daughter and discussed hospice and the philosophy. Attending was present and the family would like me to stop back tomorrow and they will make a decision at that time. If family agrees we will get the patient home on Thursday with
hospice services. More information to follow.
--- NOTE | 2024-10-19 12:04 | W.PN.NEPH.PH ---
Today's Communication / Plan
-
Observe on IV fluids
Assessment/Plan
-
Assessment
COVID-19
Failure to thrive
Acute kidney injury
Urinary retention with Buchanan catheter
C2 fracture
Neck brace
Heart failure preserved ejection fraction, hypertrophic cardiomyopathy
Plan:
cr stable at 1.9 non oliguric with buchanan for retention
encourage po, patient failing if family wishes to be aggressive she will require PEG tube likely which will be complicated in the setting of her dementia and not advisable
Now on 2-day trial of D5 lactated Ringer's as patient has been n.p.o. due to advancing dementia with failure to thrive
replace k
Follow BMP
renal ultrasound no obstruction
-
-
Date of Service: October 19, 2024
CC / HPI / ROS
-
Chief Complaint:
JOCELIN
History of Present Illness:
JOCELIN/Cr down to 1.9
poor appetite
Na better at 144, k low 3.3
BP stable
nonoliguric
Review of Systems:
no CP/SOB
flat affect
Labs
-
Labs:
WBC 7.5 10^3/uL (4.8-10.8) 10/12/24 07:26
RBC 5.00 10^6/uL (4.20-5.40) 10/12/24 07:26
Hgb 13.7 g/dL (12.0-16.0) 10/12/24 07:26
Hct 41.9 % (37.0-47.0) 10/12/24 07:26
Plt Count 216 10^3/uL (130-400) 10/12/24 07:26
Sodium 144 mmol/L (135-145) 10/19/24 07:49
Potassium 3.2 mmol/L (3.5-5.1) L 10/19/24 07:49
Chloride 109 mmol/L (98-107) H 10/19/24 07:49
Carbon Dioxide 31 mmol/L (22-30) H 10/19/24 07:49
BUN 27 mg/dl (7-17) H 10/19/24 07:49
Creatinine 1.9 mg/dL (0.6-1.0) H 10/19/24 07:49
eGFR 26.36 10/19/24 07:49
Glucose 126 mg/dl (70-99) H 10/19/24 07:49
Calcium 8.8 mg/dl (8.4-10.2) 10/19/24 07:49
Albumin 3.0 g/dl (3.5-5.0) L 10/16/24 05:03
Physical Exam
-
Vital Signs:
Vital Signs
Temp Pulse Resp BP Pulse Ox
98.6 F 79 17 152/88 95
10/19/24 07:11 10/19/24 08:19 10/19/24 07:11 10/19/24 08:19 10/19/24 10:30
Cardiovascular:: Regular rate and rhythm
[2024-10-19 15:09] VITALS: BP 160/97
[2024-10-19] MEDS: XARELTO 15 MG PO (17:06)
[2024-10-19] MEDS: REMERON 7.5 MG PO (20:44)
[2024-10-19 23:16] VITALS: BP 158/97
[2024-10-20] MEDS: SYNTHROID 100 MCG PO (04:53)
[2024-10-20] MEDS: CYTOMEL 5 MICROGRAM PO (04:53)
[2024-10-20 05:26] VITALS: BMI 19.9
[2024-10-20 07:06] LABS: Blood Urea Nitrogen 20 mg/dl (7-17); Carbon Dioxide 30 mmol/L (22-30); Chloride 111 mmol/L (98-107); Estimated Creatinine Clearance 20 ml/min; Glucose 105 mg/dl (70-99); Potassium 3.1 mmol/L (3.5-5.1); Sodium 145 mmol/L (135-145)
[2024-10-20 07:15] VITALS: BMI 19.9
[2024-10-20 07:17] VITALS: BP 165/87
[2024-10-20] MEDS: SENOKOT-S 1 TABLET PO ×2 (08:12→20:35)
[2024-10-20] MEDS: D5LR 1000 IV (08:12)
[2024-10-20] MEDS: CARDIZEM 60 MG PO ×2 (08:13→16:11)
[2024-10-20] MEDS: VITAMIN B-12 1000 MCG PO (08:14)
[2024-10-20] MEDS: SINEMET 25-100 1 TABLET PO ×2 (08:14→16:11)
[2024-10-20] MEDS: PACERONE 200 MG PO (08:14)
[2024-10-20] MEDS: MIRALAX PO ×2 (08:14→20:23)
--- NOTE | 2024-10-20 11:47 | W.PN.HOSP.TC ---
Today's Communication/Plan
-
continue IVF
plan dc to home on Thursday
Assessment / Plan
Assessment / Plan
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
#FTT-severely decreased appetite, mild weight loss
#Moderate protein caloric malnutrition due to chronic illness
-Continue to monitor mentation
-started on Remeron for appetite stimulant.
-Dc melatonin
-Appetite Not improving much. Family decided against feeding tube.
-Family requests IVF to continue to see if improvement in mentation as with dehydration.
- understands pt with end stage dementia.
-Discussed with Kathrine, decision has been made to proceed with Home Hospice on Thursday, 10/22
#Acute on chronic functional decline secondary to COVID infection as well as chronic decline secondary to deconditioning/depression
-COVID-positive on 10/11
-On room air.
-Chest x-ray shows small left pleural effusion with adjacent left basilar opacity which is unchanged from prior
-No treatment necessary for COVID
-Tongue Stitcher consult for lack of oral intake
-PT/OT
# Acute kidney injury
# Chronic urinary retention
#Hypernatremia likely secondary to decreased oral intake, better with IVF
-IV fluids per nephrology
-Creatinine of 3.2 to 1.9
-Status post IV fluid. FENA with intrinsic renal disease
-Continue with Graves catheter. Was due for voiding trial tomorrow. Currently patient with decreased mobility and thus we will continue with Graves. If with increasing mobility then can consider trial of voiding prior to discharge or at SNF
-follow-up outpatient with Dr. Casey. Graves was exchanged a few weeks ago
-Renally dose medication. Ultrasound renal negative for hydronephrosis
-Na downtrended.
-w nephrology following.
Hypokalemia, now 3.1, will adjust IVF
# Constipation
Abd xray with severe stool burden s/p Enema x 2 with good results
having bm.
Primary HTN
-Elevated. Cardizem CD switched to 60mg TID
-May need additional agents
-nephro following. agree with alpha anum.
-Will start IV meds prn.
# Polymicrobial UTI with staph and Pseudomonas
-Decrease in Pseudomonas CFU. Cipro since stopped.
# Worsening transaminitis likely secondary to COVID
-Continue to monitor
# Recent hematuria secondary to catheter associated UTI
-Urinalysis shows red blood cells but no signs of infection
-Patient has urology follow-up scheduled for next week
# Anxiety/depression
-started on remeron. monitor for now.
Recent C2 fracture
-Wearing neck collar
-Check cervical xray Possible nondisplaced fracture of the posterior elements of C2 as described above. Clinical correlation recommended. If this is unknown, CT examination recommended.
Moderate C5/C6 degenerative disc disease.
Bony demineralization.
-unclear if playing a role in decrease appetite due to severe discomfort.
-Patient was supposed to see Dr. Sridevi Schaefer as outpatient. Will ask neurosurgery input to see when safe to remove cervical collar and if any further restriction.
Recently diagnosed Parkinsons
-on carbidopa levodopa recently started as outpatient
-PT/OT/SPeech eval
Chronic HFpEF
Hypertrophic obstructive cardiomyopathy
PFO
Bicuspid aortic valve without subaortic membrane
Paroxysmal atrial fibrillation
-Continue amiodarone
-Continue diltiazem monitor a 180 mg CD will switch to 60 3 times daily as patient keeps crushing tablets.
-Continue Xarelto reduced dose of 15 mg. If no significant improvement in creatinine clearance family to consider switching to Eliquis.
Hypothyroidism
-Continue levothyroxine, liothyronine
Right heel DTI-poa
Stage I sacral pressure injury-poa
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
DNR/DNI
DVT prophylaxis�Xarelto
PT/OT-probably will require SNF
Extensive meeting with and dgt. Plan is to move onto Hospice on Thursday, input of Kathrine greatly appreciated
time 60 minutes
Anticipated Discharge: 24 - 48 hours
Subjective/Interval History
-
Date of Service: October 20, 2024
Remains very weak
Objective Data
-
Labs:
Laboratory Results
10/20/24
06:15
Sodium 145
Potassium 3.1 L
Chloride 111 H
Carbon Dioxide 30
BUN 20 H
Creatinine 1.6 H
Glucose 105 H
Calcium 9.0
Vital Signs:
Vital Signs
Temp Pulse Resp BP Pulse Ox
98.4 F 78 18 165/87 98
10/20/24 07:17 10/20/24 08:13 10/20/24 07:17 10/20/24 08:13 10/20/24 09:56
I&O
10/19/24 10/20/24 10/21/24
06:59 06:59 06:59
Intake Total 640 / 640 2500 / 2500
Output Total 200 / 200 850 / 850
Balance 440 / 440 1650 / 1650
Review of Systems
-
Unable to obtain full review of systems at this time due to: Dementia
History Source: Family (met with and dgt Aylin in room)
Constitutional: Reports Weakness
Respiratory: Reports No Symptoms
Cardiac: Reports No Symptoms
Abdomen/GI: Reports Anorexia
Musculoskeletal: Reports Muscle Weakness
Physical Exam
-
General: Well Developed, Appears Chronically Ill and Cachectic
HEENT: Normocephalic, Atraumatic, Moist Mucous Membranes and Other (cervical collar in place)
Respiratory: Clear to Auscultation; Negative Wheezes, Rales or Rhonchi
Cardiac: Regular Rhythm, S1/S2 and Murmur (3/6sem)
--- NOTE | 2024-10-20 11:50 | HOSPNOTE ---
Spoke at length with family about hospice and the philosophy. The family is in agreement and would like the patient to go home on Sunday 10/22. Equipment will be needed and OOH DNR on chart. Transportation will be needed. Attending and CM aware of
plan.
--- NOTE | 2024-10-20 12:59 | PTOTSP ---
Chart reviewed. Patient and family have decided on transition to hospice care.
Skilled therapy no longer warranted and will be discharged at this time.
[2024-10-20] MEDS: D5/0.45%NSS with KCL 20 MEQ 1000 IV (13:23)
--- NOTE | 2024-10-20 14:50 | W.PN.UPDATE ---
Update Note
Progress Note Update
Patient to be transition to hospice care on Thursday
Creatinine has reached down towards baseline
Discussed with hospitalist
We are signing off
[2024-10-20 14:51] VITALS: BP 150/83
--- NOTE | 2024-10-20 15:39 | CM ---
Patient will be going home on hospice services on Sat 10/22
Transportation forms on chart - time set for 11am
[facility] DNR on chart for signature - tt hospitalist
IMM explained & signed on chart
PLAN: home on Sat 10/22 with hospice
transportation forms on chart-11 am
[2024-10-20] MEDS: XARELTO 15 MG PO (17:41)
[2024-10-20] MEDS: REMERON PO ×2 (22:36→23:19)
[2024-10-20] MEDS: SINEMET 25-100 PO ×2 (22:37→23:19)
[2024-10-20] MEDS: CARDIZEM PO ×2 (22:51→23:18)
[2024-10-20 23:45] VITALS: BP 169/89
[2024-10-21] MEDS: D5/0.45%NSS with KCL 20 MEQ 1000 IV ×2 (01:46→14:37)
[2024-10-21] MEDS: SYNTHROID PO (05:19)
[2024-10-21] MEDS: CYTOMEL PO (05:20)
[2024-10-21 06:14] VITALS: BMI 20.2
[2024-10-21 07:00] LABS: Blood Urea Nitrogen 16 mg/dl (7-17); Calcium 8.4 mg/dl (8.4-10.2); Carbon Dioxide 32 mmol/L (22-30); Chloride 110 mmol/L (98-107); Estimated Creatinine Clearance 23 ml/min; Glucose 87 mg/dl (70-99); Potassium 2.9 mmol/L (3.5-5.1); Sodium 145 mmol/L (135-145); eGFR 38.03
[2024-10-21 07:42] VITALS: BP 172/96
[2024-10-21] MEDS: CARDIZEM PO ×4 (08:59→21:43)
[2024-10-21] MEDS: SINEMET 25-100 PO ×4 (08:59→21:43)
[2024-10-21] MEDS: VITAMIN B-12 PO ×2 (08:59→12:26)
[2024-10-21] MEDS: PACERONE PO ×2 (08:59→12:25)
[2024-10-21] MEDS: SENOKOT-S PO ×3 (08:59→20:00)
[2024-10-21] MEDS: MIRALAX PO ×2 (09:00→20:00)
[2024-10-21] MEDS: KCL 260 MEQ IV (09:17)
--- NOTE | 2024-10-21 10:15 | W.PN.HOSP.TC ---
Today's Communication/Plan
-
Hospice transition tomorrow at 11 AM
Assessment / Plan
Assessment / Plan
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
#FTT-severely decreased appetite, mild weight loss
#Moderate protein caloric malnutrition due to chronic illness
Pt not eating, family does not wish a feeding tuber
-Continue to monitor mentation
-started on Remeron for appetite stimulant.
-Dc melatonin
-Family requests IVF to continue to see if improvement in mentation with improvement in dehydration.
- understands pt with end stage dementia.
-Discussed with Kathrine, decision has been made to proceed with Home Hospice on Thursday, 10/22
#Acute on chronic functional decline secondary to COVID infection as well as chronic decline secondary to deconditioning/depression
-COVID-positive on 10/11
-On room air.
-Chest x-ray shows small left pleural effusion with adjacent left basilar opacity which is unchanged from prior
-No treatment necessary for COVID
-Assistant Professor Surgical Technology consult for lack of oral intake
-PT/OT
# Acute kidney injury
# Chronic urinary retention
#Hypernatremia likely secondary to decreased oral intake, better with IVF
-IV fluids per nephrology
-Creatinine of 3.2 to 1.9-->1.4
dehydration resolved
-Status post IV fluid. FENA with intrinsic renal disease
-Continue with Graves catheter. for Hospice
-follow-up outpatient with Dr. Casey. Graves was exchanged a few weeks ago
-Renally dose medication. Ultrasound renal negative for hydronephrosis
-Na downtrended.
-w nephrology following.
Hypokalemia, will adjust IVF, will order iV riders, have ordered oral K, but pt now eating. Reviewed with and dgt at bedside
# Constipation
Abd xray with severe stool burden s/p Enema x 2 with good results
having bm.
Primary HTN
-will start Catapress TTS 1
# Polymicrobial UTI with staph and Pseudomonas
-Decrease in Pseudomonas CFU. Cipro since stopped.
# Worsening transaminitis likely secondary to COVID
-Continue to monitor
# Recent hematuria secondary to catheter associated UTI
-Urinalysis shows red blood cells but no signs of infection
-Patient has urology follow-up scheduled for next week
# Anxiety/depression
-started on remeron. monitor for now.
Recent C2 fracture
-Wearing neck collar
-Check cervical xray Possible nondisplaced fracture of the posterior elements of C2 as described above. Clinical correlation recommended. If this is unknown, CT examination recommended.
Moderate C5/C6 degenerative disc disease.
Bony demineralization.
-unclear if playing a role in decrease appetite due to severe discomfort.
-Patient was supposed to see Dr. Sridevi Schaefer as outpatient. Will ask neurosurgery input to see when safe to remove cervical collar and if any further restriction.
Recently diagnosed Parkinsons
-on carbidopa levodopa recently started as outpatient
-PT/OT/SPeech eval
Chronic HFpEF
Hypertrophic obstructive cardiomyopathy
PFO
Bicuspid aortic valve without subaortic membrane
Paroxysmal atrial fibrillation
-Continue amiodarone
-Continue Xarelto reduced dose of 15 mg. If no significant improvement in creatinine clearance family to consider switching to Eliquis.
Hypothyroidism
-Continue levothyroxine, liothyronine
Right heel DTI-poa
Stage I sacral pressure injury-poa
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
DNR/DNI
DVT prophylaxis�Xarelto
Extensive meeting with and dgt. Plan is to move onto Hospice on Thursday, input of Kathrine greatly appreciated
time 60 minutes. Completed FMLA from for son
Anticipated Discharge: Within 24 hours
Subjective/Interval History
-
Date of Service: October 21, 2024
Pt remains very weak, noncommunicative
very concerned about hypokalemia
Objective Data
-
Labs:
Laboratory Results
10/21/24
06:03
Sodium 145
Potassium 2.9 L
Chloride 110 H
Carbon Dioxide 32 H
BUN 16
Creatinine 1.4 H
Glucose 87
Calcium 8.4
Vital Signs:
Vital Signs
Temp Pulse Resp BP Pulse Ox
97.3 F 73 18 172/96 96
10/21/24 07:42 10/21/24 08:59 10/21/24 07:42 10/21/24 08:59 10/21/24 07:42
I&O
10/20/24 10/21/24 10/22/24
06:59 06:59 06:59
Intake Total 2500 / 2500 910 / 910
Output Total 850 / 850 550 / 550
Balance 1650 / 1650 360 / 360
Review of Systems
-
Unable to obtain full review of systems at this time due to: Dementia
History Source: Family
Constitutional: Reports Weakness
Respiratory: Reports No Symptoms
Cardiac: Reports No Symptoms
Abdomen/GI: Reports Anorexia
Musculoskeletal: Reports Muscle Weakness
Physical Exam
-
General: Well Developed, Appears Chronically Ill and Cachectic
HEENT: Normocephalic, Atraumatic, Moist Mucous Membranes and Other (cervical collar in place)
Respiratory: Clear to Auscultation; Negative Wheezes, Rales or Rhonchi
Cardiac: Regular Rhythm, S1/S2 and Murmur (3/6sem)
Musculoskeletal: Negative No Edema (trace pedal edema)
[2024-10-21] MEDS: KCL ELIXIR 40 MEQ PO (11:20)
[2024-10-21] MEDS: CATAPRES-TTS-1 0.1 MG TRANSDERM (11:35)
--- NOTE | 2024-10-21 12:27 | PTCARENOTE ---
Multiple attempts to administer medications this morning, MD made aware pt unable to take medications due to mental status. Family at bedside during all attempts. Mouth care and suction provided to pt.
[2024-10-21 14:56] VITALS: BP 181/109
[2024-10-21 15:04] VITALS: BP 168/109
--- NOTE | 2024-10-21 15:11 | CM ---
CM asked Rn Baby to confirm transport clam picker time for tomorrow, 10/22/24 @ 1100
Plan: Discharge to home with Home Hospice tomorrow
[2024-10-21] MEDS: XARELTO PO (17:23)
[2024-10-21] MEDS: REMERON PO (21:43)
--- NOTE | 2024-10-21 21:45 | PTCARENOTE ---
Multiple attempts to administer medications at 20:00 and 21:30. pt is not opening her eyes or mouth to take medications. Aspiration risk. Mouth care completed. Day shift had similar issues today. MD made aware by dayshift nurse.
[2024-10-21 23:26] VITALS: BP 183/90
[2024-10-22 01:36] VITALS: BMI 20.4
[2024-10-22] MEDS: D5/0.45%NSS with KCL 20 MEQ 1000 IV (01:59)
--- NOTE | 2024-10-22 03:39 | PTCARENOTE ---
Patients blood pressure 180s/90s. MD was made aware of elevated blood pressures during dayshift. patient unable to take blood pressure medications. Plan is to go home on hospice today.
[2024-10-22] MEDS: CYTOMEL PO (05:06)
[2024-10-22 06:57] LABS: Blood Urea Nitrogen 15 mg/dl (7-17); Calcium 7.6 mg/dl (8.4-10.2); Carbon Dioxide 29 mmol/L (22-30); Chloride 111 mmol/L (98-107); Estimated Creatinine Clearance 25 ml/min; Glucose 92 mg/dl (70-99); Potassium 3.3 mmol/L (3.5-5.1); Sodium 142 mmol/L (135-145); eGFR 41.57
[2024-10-22 07:09] VITALS: BP 189/97
--- NOTE | 2024-10-22 09:18 | W.PN.HOSP.TC ---
Today's Communication/Plan
-
dc now
Assessment / Plan
Assessment / Plan
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
#FTT-severely decreased appetite, weight loss
#Moderate protein caloric malnutrition due to chronic illness
Pt not eating, family does not wish a feeding tube
-Continue to monitor mentation
-started on Remeron for appetite stimulant.
-Dc melatonin
-Family requested IVF to continue to see if improvement in mentation with improvement in dehydration. Will stop now
- understands pt with end stage dementia.
-Discussed with Kathrine, decision has been made to proceed with Home Hospice today, Thursday, 10/22
#Acute on chronic functional decline secondary to COVID infection as well as chronic decline secondary to deconditioning/depression
-COVID-positive on 10/11
-On room air.
-Chest x-ray shows small left pleural effusion with adjacent left basilar opacity which is unchanged from prior
-No treatment necessary for COVID
-Category Analyst consult for lack of oral intake
-PT/OT
# Acute kidney injury
# Chronic urinary retention
#Hypernatremia likely secondary to decreased oral intake, better with IVF
-IV fluids per nephrology
-Creatinine of 3.2 to 1.9-->1.4-->1.3
dehydration resolved
-Status post IV fluid. FENA with intrinsic renal disease
-Continue with Graves catheter. for Hospice
Graves was exchanged a few weeks ago
-Renally dose medication. Ultrasound renal negative for hydronephrosis
-Na downtrended.
-w nephrology following.
Hypokalemia, will adjust IVF, will order iV riders, have ordered oral K, but pt now eating. Reviewed with and dgt at bedside
# Constipation
Abd xray with severe stool burden s/p Enema x 2 with good results
having bm.
Primary HTN
-will start Catapress TTS 1, to continue post dc
# Polymicrobial UTI with staph and Pseudomonas
-Decrease in Pseudomonas CFU. Cipro since stopped.
# Worsening transaminitis likely secondary to COVID
-Continue to monitor
# Recent hematuria secondary to catheter associated UTI
-Urinalysis shows red blood cells but no signs of infection
-Patient has urology follow-up scheduled for next week
# Anxiety/depression
-started on remeron. monitor for now.
Recent C2 fracture
-Wearing neck collar
-Check cervical xray Possible nondisplaced fracture of the posterior elements of C2 as described above. Clinical correlation recommended. If this is unknown, CT examination recommended.
Moderate C5/C6 degenerative disc disease.
Bony demineralization.
-unclear if playing a role in decrease appetite due to severe discomfort.
-Patient was supposed to see Dr. Sridevi Schaefer as outpatient. Will ask neurosurgery input to see when safe to remove cervical collar and if any further restriction.
Recently diagnosed Parkinsons
-on carbidopa levodopa recently started as outpatient
-PT/OT/SPeech eval
Chronic HFpEF
Hypertrophic obstructive cardiomyopathy
PFO
Bicuspid aortic valve without subaortic membrane
Paroxysmal atrial fibrillation
-Continue amiodarone
-Continue Xarelto reduced dose of 15 mg. If no significant improvement in creatinine clearance family to consider switching to Eliquis.
Hypothyroidism
-Pt not taking by mouth. requests a dose given IV prior to dc. order placed and discussed with pharmacy
Right heel DTI-poa
Stage I sacral pressure injury-poa
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
DNR/DNI
DVT prophylaxis�Xarelto
Extensive meeting with and dgt 10/22 Plan is to move onto Hospice on Thursday, input of Kathrine greatly appreciated
time 60 minutes. Completed FMLA from for son 10/21
Anticipated Discharge: Today
Subjective/Interval History
-
Date of Service: October 22, 2024
Eyes open, nonresponsive
Objective Data
-
Labs:
Laboratory Results
10/22/24
05:56
Sodium 142
Potassium 3.3 L
Chloride 111 H
Carbon Dioxide 29
BUN 15
Creatinine 1.3 H
Glucose 92
Calcium 7.6 L
Vital Signs:
Vital Signs
Temp Pulse Resp BP Pulse Ox
97.7 F 64 16 189/97 97
10/22/24 07:09 10/22/24 07:09 10/22/24 07:09 10/22/24 07:09 10/22/24 07:09
I&O
10/21/24 10/22/24 10/23/24
06:59 06:59 07:59
Intake Total 910 / 910 2170 / 2170
Output Total 550 / 550 500 / 500
Balance 360 / 360 1670 / 1670
Review of Systems
-
History Source: Family (dgt and in room)
EENT: Reports No Symptoms Reported
Respiratory: Reports No Symptoms
Cardiac: Reports No Symptoms
Physical Exam
-
General: Well Developed, Appears Chronically Ill and Cachectic
HEENT: Normocephalic, Atraumatic, Moist Mucous Membranes and Other (cervical collar in place)
Respiratory: Clear to Auscultation; Negative Wheezes, Rales or Rhonchi
Cardiac: Regular Rhythm, S1/S2 and Murmur (3/6sem)
Musculoskeletal: Negative No Edema (trace pedal edema)
[2024-10-22] MEDS: LEVOTHROID 75 MCG IV (09:55)
[2024-10-22] MEDS: VITAMIN B-12 PO (09:57)
[2024-10-22] MEDS: SINEMET 25-100 PO (09:57)
--- NOTE | 2024-10-22 09:59 | CM ---
Patient to be discharged home with Hospice
IMM in chart-explained
[facility] DNR on chart & signed by hospitalist
PLAN: Home, with Hospice
Ambulance to pepper picker at 11am
[2024-10-22] MEDS: PACERONE PO (10:01)
[2024-10-22] MEDS: KCL ELIXIR PO (10:01)
[2024-10-22] MEDS: CARDIZEM PO (10:01)
[2024-10-22] MEDS: SENOKOT-S PO (10:01)
[2024-10-22] MEDS: MIRALAX PO (10:01)
[2024-10-22 10:30] VITALS: BP 184/100
--- NOTE | 2024-10-23 15:12 | W.DS.TRANS ---
DC Summary - Home Health Occupational Therapist
-
Discharge Instructions:
Sleep Apnea Risk Low
Discharge Diagnosis/Procedures End Stage Dementia
Diet No restrictions
Activity With assistance
Driving Restrictions No driving
Bathing Restrictions None
Other Services Hospice
Instructions:
Stand-Alone Forms:
Changes to Home Medications: Yes
Discharge Medications:
DC Medications w/original date entered in [employer]
rivaroxaban 20 mg tablet (Xarelto) 20 mg PO QPM Blood Clot Prevention/Tx 09/18/21
clonidine 0.1 mg/24 hr weekly transdermal patch 0.1 mg transdermal Q7D #4 ea 10/22/24
Home Medication Changes
Catapress TTS patch will replace other BP meds
Oral medications to be stopped with starting Hospice
Xarelto will continue if pt can swallow pill
Pending Results: No
== END 2024-10-22 11:13 | disposition hospice, home (50) | DRG 178 ==
LOC: 2 NORTH 15:41
PROVIDERS: Hospitalist; Specialist; ADMITTING PHYSICIAN Hospitalist; ATTENDING PHYSICIAN Internal Medicine; CONSULT PHYSICIAN Specialist; EMERGENCY PHYSICIAN Student in an Organized Health Care Education/Training Program
DX: U07.1 COVID-19 (principal); E44.0 Moderate protein-calorie malnutrition; F02.84 Dementia in other diseases classified elsewhere, unspecified severity, with anxiety; F02.83 Dementia in other diseases classified elsewhere, unspecified severity, with mood disturbance; I50.32 Chronic diastolic (congestive) heart failure; N39.0 Urinary tract infection, site not specified; I42.1 Obstructive hypertrophic cardiomyopathy; N17.9 Acute kidney failure, unspecified; Q21.12 Patent foramen ovale; G20.A1 Parkinson's disease without dyskinesia, without mention of fluctuations; F32.A Depression, unspecified; R62.7 Adult failure to thrive; E03.9 Hypothyroidism, unspecified; I48.0 Paroxysmal atrial fibrillation; I11.0 Hypertensive heart disease with heart failure; E87.6 Hypokalemia; Z51.5 Encounter for palliative care; E86.0 Dehydration; K59.00 Constipation, unspecified; S12.100D Unspecified displaced fracture of second cervical vertebra, subsequent encounter for fracture with routine healing; Q23.81 Bicuspid aortic valve; Z66 Do not resuscitate; Z90.710 Acquired absence of both cervix and uterus; L89.151 Pressure ulcer of sacral region, stage 1; L89.616 Pressure-induced deep tissue damage of right heel; Z68.20 Body mass index [BMI] 20.0-20.9, adult; E86.1 Hypovolemia; Z79.01 Long term (current) use of anticoagulants; Z79.890 Hormone replacement therapy; Z79.899 Other long term (current) drug therapy; Z88.5 Allergy status to narcotic agent; Z90.722 Acquired absence of ovaries, bilateral; Z91.040 Latex allergy status; Z91.81 History of falling
CPT/HCPCS: 71045; 72040; 74019; 76775; 80048; 80053; 81003; 81015; 81099; 82248; 82570; 83735; 84300; 85025; 87070; 87077; 87086; 87147; 87186; 87502; 87811; 92526; 92610; 93005; 96360; 97163; 97167; 97530; 97535; 99285